=== PATIENT | male | born 1945 | race Caucasian/White ===

== ENCOUNTER → 2018-03-25 11:58 | Outpatient (CLI) | payer MEDICARE, OTHER, SELFPAY ==
--- NOTE | 2018-03-25 12:00 | DI.RAD.S_ITS ---
PROCEDURE: XR THORACIC SPINE 3V INDICATIONS: loss of height TECHNIQUE: 3 views of the thoracic spine were acquired. COMPARISON: None. FINDINGS: Bones: No fractures or dislocations. There is moderate kyphosis. Mild anterior bony lipping T7-T12. No suspicious bony lesions. 12 pairs of ribs are noted, and appear intact where visualized. Soft tissues: No paravertebral stripe thickening. IMPRESSION: Thoracic kyphosis and mild spondylosis. No acute bony abnormality. Dictated by: Chaitanya Romero M.D. on 03/25/2018 at 12:36 Approved by: Chaitanya Romero M.D. on 03/25/2018 at 12:39
--- NOTE | 2018-03-25 12:00 | DI.RAD.S_ITS ---
PROCEDURE: XR LUMBAR SPINE 2-3V INDICATIONS: loss of height TECHNIQUE: 3 views of the lumbar spine were acquired. COMPARISON: [facility] [place], [place], XR LUMBAR SPINE WITH OLBIQUES PLUS FLEXION EXTENSION, 09/20/2017, 13:26. FINDINGS: Bones: 5 [id number] vertebrae are present. There is normal bony alignment. No vertebral body compression fractures. Sclerosis is present over the facet joints L3-4, L4-5 and L5-S1. No suspicious bony lesions. Multilevel anterior bony lipping. Soft tissues: Overlying bowel gas pattern is normal. No suspicious soft tissue calcifications. IMPRESSION: No acute bony abnormality. Mild spondylosis and facet arthropathy. Dictated by: Chaitanya Romero M.D. on 03/25/2018 at 12:39 Approved by: Chaitanya Romero M.D. on 03/25/2018 at 12:43
== END ==
PROVIDERS: PCP Family Medicine; Visit Provider Family Medicine
DX: M40.294 Other kyphosis, thoracic region (principal); M47.814 Spondylosis without myelopathy or radiculopathy, thoracic region
CPT/HCPCS: 72072; 72100

== ENCOUNTER → 2018-03-30 14:19 | Outpatient (CLI) | payer MEDICARE, OTHER, SELFPAY ==
[2018-03-30 16:32] LABS: Hemoglobin A1C% w Est Avg Glu 6.8 % (4.0-6.0)
== END ==
PROVIDERS: Family Provider Orthopaedic Surgery; PCP Family Medicine; Visit Provider Family Medicine
DX: E11.9 Type 2 diabetes mellitus without complications (principal)
CPT/HCPCS: 36415; 83036

== ENCOUNTER → 2018-04-08 08:24 | Outpatient (CLI) | payer MEDICARE, OTHER, SELFPAY ==
[2018-04-08 09:05] LABS: Hematocrit 44.3 % (41-53); Hemoglobin 14.9 g/dL (13.5-17.5); Mean Corpuscular HGB Conc 33.5 % (30-36); Mean Corpuscular Hemoglobin 30.8 PG (26-34); Mean Corpuscular Volume 91.8 fL (80-100); Platelet Count 211 X10^3/uL (150-400); Red Blood Cell Count 4.83 X10^6/uL (4.5-5.9); White Blood Cell Count 7.3 X10^3/uL (4.5-11.0)
[2018-04-08 09:21] LABS: Hemoglobin A1C% w Est Avg Glu 6.9 % (4.0-6.0)
[2018-04-08 09:37] LABS: BUN Creatinine Ratio 23.3 (6-22); Blood Urea Nitrogen 21 mg/dL (9-20); Carbon Dioxide 26 mmol/L (22-32); Chloride 99 mmol/L (98-107); Estimated Glomerular Filt Rate > 60.0 mL/min (>60); Glucose 144 mg/dL (80-110); HEMOLYSIS < 15 (0-50); Potassium 4.3 mmol/L (3.4-5.1); Sodium 139 mmol/L (137-145)
== END ==
PROVIDERS: Family Provider Orthopaedic Surgery; PCP Family Medicine; Visit Provider Orthopaedic Surgery
DX: R73.9 Hyperglycemia, unspecified (principal); Z01.818 Encounter for other preprocedural examination
CPT/HCPCS: 36415; 80048; 83036; 85025; 85027

== ENCOUNTER 2018-04-20 14:31 | Observation (INO) | payer MEDICARE, OTHER, SELFPAY ==
[2018-04-12 15:10] VITALS: BMI 29.8
[2018-04-19] VITALS (14 sets, daily range): BP systolic 102–149; BP diastolic 53–84; PULSE 16–84; RESP 10–18; TEMP 36–37.3; O2SAT 92–96; BMI 29.8
--- NOTE | 2018-04-19 | DI.RAD.S_ITS ---
PROCEDURE: XR LUMBAR SPINE 1V INDICATIONS: LAMINECTOMY TECHNIQUE: Single lateral view of the lumbar spine were acquired. COMPARISON: [facility], [place], XR THORACIC SPINE 3V, 03/25/2018, 11:47. [facility] [place], [place], XR PELVIS WITH LATERAL HIP RIGHT, 12/13/2017, 13:12. [facility], MR, L-SPINE WITHOUT CONTRAST, 09/16/2017, 9:41. [facility], [place], XR LUMBAR SPINE 2-3V, 03/25/2018, 11:47. FINDINGS: Bones: A metallic probe is placed over the posterior elements of L3-4. Soft tissues: Overlying bowel gas pattern is normal. No suspicious soft tissue calcifications. IMPRESSION: Posterior element L3-L4 localization. Dictated by: Giovanny Bear M.D. on 04/19/2018 at 15:34 Approved by: Giovanny Bear M.D. on 04/19/2018 at 15:36
[2018-04-19] MEDS: LACTATED RINGERS 1,000 ML 42 ML IV ×2 (12:51→15:22)
--- NOTE | 2018-04-19 13:21 | PM.PREOP ---
Pre-operative Note Interval Note Pre-op Check: History & Physical Reviewed by Physician and Exam Performed
[2018-04-19] MEDS: CEFAZOLIN 2 GM/100 ML FROZ.PIGGY IV ×2 (14:22→21:37)
--- NOTE | 2018-04-19 14:58 | SUR.OPER ---
Prone on spine table, head in foam head support, padded chest and pelvic supports, gel pad at knees, lower legs supported by pillows; nipples, genitalia and toes free of pressure, arms secured on foam padded arm boards at <90 degrees abduction. Tape over blanket at thigh secured to table.
[2018-04-19] MEDS: THROMBIN (BOVINE) 5,000 UNIT VIAL 5000 UNIT TOP (15:17)
[2018-04-19] MEDS: BUPIVACAINE 0.25% (PF) 8 ML, fentaNYL 100 MCG INJ (15:18)
[2018-04-19] MEDS: SODIUM CHLORIDE 0.9% 1,000 ML, GENTAMICIN 80 MG IRR (15:18)
[2018-04-19] MEDS: VANCOMYCIN 1,000 MG VIAL 1000 MG TOP (15:18)
--- NOTE | 2018-04-19 16:18 | PM.OP.1 ---
Operative Date/Time/Diagnoses - Date of procedure: 04/19/18 Time of procedure: 16:18 Pre-op diagnosis: Lumbar stenosis with radiculopathy Post-op diagnosis: same Procedure & Clinicians Procedure: L3-4 and L4-5 laminectomies Use of microscope Placement of epidural catheter Same procedure as scheduled: Yes Indications: [age] year old male with intractable pain from stenosis. They had failed conservative management and requested operative intervention. Risks and benefits of surgery were discussed and appropriate consents were obtained. Surgeon: Sunny Adair [employer] Systems Repairer Operator: Fiorella Galan Anesthesia Type: General Operative Notes Findings: none Closure Type: primary Specimen(s): none sent Procedure in detail: Patient was brought to the operating room and intubated on the table. They were rolled over on the well-padded prone position on the Elliott table. A time-out was performed. Preoperative antibiotics were given. The back was prepped and draped in standard sterile fashion. Using fluoroscopy for localization, a 6cm incision was made in the midline. We used Bovie to dissect through the lumbodorsal fascia and then subperiosteally dissect the paraspinal muscles off the right side. A marker was placed and x-ray was taken to confirm positioning. We then brought in the microscope. A right-sided laminectomy was performed at L3-4 and L4-5. We carefully depressed the dura and reached across the midline to decompress the opposite side. The neural foramen were cleared out. At the end, we could reach with the ball probe cephalad and caudally across the midline and to the foramen and everything was opened. The wound was irrigated. An epidural catheter was prepared with 8 mL of 0.25% Marcaine and 100 mcg of fentanyl. The dura was carefully depressed and the catheter was advanced 6 cm cephalad underneath remaining lamina without resistance. The fascia was then closed in layers. The epidural catheter was injected without complications. Vancomycin powder was placed in the wound. The superficial and the skin were closed. Sterile dressing was placed. Patient was rolled over extubated brought to recovery room with no complications. Complications: none Condition: stable Disposition: PACU Plan for aftercare: Overnight admission. Up with physical therapy. Plan for discharge tomorrow
[2018-04-19] MEDS: LACTATED RINGERS 1,000 ML 125 ML IV (18:11)
[2018-04-19] MEDS: diphenhydrAMINE 25 MG TABLET PO (18:17)
[2018-04-19] MEDS: ATORVASTATIN 20 MG TABLET 40 MG PO (19:01)
[2018-04-19] MEDS: hydrOXYzine pamoate 25 MG CAPSULE PO (19:03)
[2018-04-19] MEDS: HYDROCODONE/ACET 5/325 TABLET 2 TAB PO (20:07)
[2018-04-19] MEDS: KETOROLAC 30 MG/ML VIAL IV (20:58)
[2018-04-19] MEDS: BRINZOLAMIDE OPHTH 10 ML 1 DROPS EYE-BOTH (20:59)
[2018-04-19] MEDS: DOCUSATE 100 MG CAPSULE PO (20:59)
[2018-04-19] MEDS: LATANOPROST 0.005% OPHTH 2.5 ML 1 DROPS EYE-BOTH (21:00)
[2018-04-19] MEDS: CELECOXIB 200 MG CAPSULE PO (21:00)
[2018-04-19] MEDS: GABAPENTIN 300 MG CAPSULE PO (21:00)
[2018-04-19] MEDS: LISINOPRIL 10 MG TABLET PO (21:01)
[2018-04-19] MEDS: METOPROLOL 12.5 MG TABLET PO (21:01)
[2018-04-19] MEDS: TIMOLOL 0.5% OPHTH 1 DROPS EYE-BOTH (21:02)
[2018-04-19] MEDS: SENNOSIDES 8.6 MG TABLET 17.2 MG PO (21:02)
[2018-04-19] MEDS: HYDROMORPHONE 1 MG INJ 0.2 MG IV (21:35)
[2018-04-20] VITALS (8 sets, daily range): BP systolic 107–140; BP diastolic 59–68; PULSE 59–77; RESP 16–22; TEMP 36.4–37.2; O2SAT 92–97
[2018-04-20] MEDS: hydrOXYzine pamoate 25 MG CAPSULE PO (01:01)
[2018-04-20] MEDS: HYDROCODONE/ACET 5/325 TABLET 2 TAB PO ×4 (01:01→20:24)
--- NOTE | 2018-04-20 04:00 | PC.NURSE ---
Addendum entered by Staci Russell R.N. 04/20/18 06:20: 0300- straight cath performed (in and out) 300 ml drained. pt tolerated ok, complained of pain and pressure and jolted with ouch and ohh exclaimed. Pt sated he felt a bit better afterwords. pt rolled to right side. pillows braced and ice pack applied. will continue to monitor pt for safety. Original Note: Assumed care of pt from outgoing shift at 2300 6-19. Pt awake and alert, complains of pain. feels better with Dilaudid but does wear off. pain medication administered per MAR when pt asked. Pt has not yet voided. jeffrey shift called fro cath order. pt given Popsicle at pt stated his mouth was very dry. pt drinking and tolerating well. pt stated he will try to void. pt able to void 75cc. pt states he wants to hold off for another hour to try to void again in urinal. pt bed moved to help with gravity to hopefully aid in voiding. pt compliant with nursing assessments. bed in lowest,locked position. belongings and call light within reach. will continue to monitor pt for safety. 0400- pt voided only 25ml out. bladder scanned. see documentation.
[2018-04-20] MEDS: CEFAZOLIN 2 GM/100 ML FROZ.PIGGY IV (06:03)
[2018-04-20 06:37] LABS: Hemoglobin 12.4 g/dL (13.5-17.5)
[2018-04-20 06:46] LABS: BUN Creatinine Ratio 15.7 (6-22); Blood Urea Nitrogen 11 mg/dL (9-20); Carbon Dioxide 29 mmol/L (22-32); Chloride 96 mmol/L (98-107); Estimated Glomerular Filt Rate > 60.0 mL/min (>60); Glucose 164 mg/dL (80-110); HEMOLYSIS < 15 (0-50); Potassium 4.1 mmol/L (3.4-5.1); Sodium 133 mmol/L (137-145)
--- NOTE | 2018-04-20 07:42 | P.PN_ITS ---
Subjective Date Patient Seen: 04/20/18 Time Patient Seen: 07:40 Interval history: Rough night. He could not get his pain under control until about 1:00 a.m. and then he has been able to sleep since then. He had to have an in-and out catheterization for urinary retention overnight. He has not urinated since. Exam Vital Signs (past 8 hours): Vital Signs - 8 hr 3 04/20/18 01:00 04/20/18 03:30 Temperature 98.3 F Pulse Rate 72 Respiratory Rate 16 Blood Pressure 108/63 Pulse Oximetry 97 96 Pulse Oximetry 96 Oxygen Delivery Method Nasal Cannula Oxygen Flow Rate 1.5 Const Orientation: alert and oriented x3 Back/Spine/Pelvis Other: Dressing CDI. 5/5 motor both lower extremities Objective Labs Result Diagrams: 04/20/18 06:15 04/20/18 06:15 Labs: Laboratory Results - last 24 hr 04/20/18 04/20/18 06:15 06:15 Hgb 12.4 L Hct 37.0 L Sodium 133 L Potassium 4.1 Chloride 96 L Carbon Dioxide 29 BUN 11 Creatinine 0.70 Estimated GFR > 60.0 BUN/Creatinine Ratio 15.7 Glucose 164 H Calcium 8.0 L Assessment & Plan Post-op Postoperative Procedures Operation Date: 04/19/18 13:45 Actual Procedures Side Surgeon p L3-4, L4-5 Laminectomies Sunny Adair MD Mobilize today with physical therapy. If his pain is under control and he is safe he could go home. He he will need to be able to urinate first. Time Spent With Patient less than 15 minutes Quality VTE Deep Vein Thrombosis/Pulmonary Embolism Present on Admission: No
[2018-04-20] MEDS: DOCUSATE 100 MG CAPSULE PO ×2 (09:17→20:29)
[2018-04-20] MEDS: METFORMIN HCL 500 MG TABLET 1000 MG PO ×2 (09:17→17:11)
[2018-04-20] MEDS: CELECOXIB 200 MG CAPSULE PO (09:17)
[2018-04-20] MEDS: SODIUM CHLORIDE 0.9% FLUSH 10 ML IV ×2 (09:18→20:32)
[2018-04-20] MEDS: TIMOLOL 0.5% OPHTH 1 DROPS EYE-BOTH ×2 (09:19→20:29)
[2018-04-20] MEDS: BRINZOLAMIDE OPHTH 10 ML 1 DROPS EYE-BOTH ×2 (09:19→20:28)
[2018-04-20] MEDS: INSULIN ASPART 100 UNIT/ML INSULN PEN SUBCUT ×2 (09:21→12:25)
--- NOTE | 2018-04-20 11:55 | PT.IIE ---
Current Diagnoses Spinal stenosis, lumbar region with neurogenic claudication (04/19/18) Radiculopathy, lumbar region (04/19/18) Surgery Performed Operation Date: 04/19/18 13:45 Actual Procedures p L3-4, L4-5 Laminectomies - Sunny Adair MD Surgical History (Last Reviewed 03/29/18 @ 17:35 by Devendra Lees MD) History of cataract removal with insertion of prosthetic lens Medical History (Last Updated 04/14/18 @ 09:21 by Sabina Jean RN) Bilateral knee pain (Acute) Bronchiectasis (Acute) Injury of left ulnar nerve (Acute) Sciatic leg pain (Acute) Allergy (Chronic Unknown) Arthritis (Chronic 2004) Asthma (Chronic Unknown) Bronchitis (Chronic Unknown) Chronic back pain (Chronic 2009) Diabetes (Chronic ~2003) Glaucoma (Chronic 2003) Hypertension (Chronic Unknown) Insomnia (Chronic Unknown) Pulsatile tinnitus of both ears (Chronic 2009) Tendonitis (Chronic Unknown) Acne conglobata (Resolved 1954) Anxiety (Resolved 2010) Padilla's palsy (Resolved 2010) Diverticulitis (Resolved 2003) Hepatitis A (Resolved ~1966) Hyponatremia (Resolved Unknown) Skin cancer (Resolved 1981) Physical Therapy Inpatient Evaluation/Re-Eval M1 PT/OT-IP Prior Functional Status Start: 04/20/18 11:45 Freq: NEEDED Status: Active Protocol: Document 04/20/18 11:45 AB (Rec: 04/20/18 11:55 AB [id number]) Medical Review Prior Functional Status Medical History Reviewed Yes Mobility and Gait pt stated that he is modified independent with all mobilities and ambulation using a tripod cane(hurrycane) but unable to ambulate long distance Social History Household Members spouse Living Arrangements House Number of Floors (Floors) Two Floors Number of Stairs To Enter/Railing? has no steps to enter has 13 steps with bilateral rails to get to 2nd floor but stated that he can stay on main level if needed Home Environment Standard Height Toilet Walk in Shower Tub/Shower Home Equipment Four Wheel Walker Employment Status Retired Additional Social History Comment has a tub shower on main level of the house without shower chair but with grab bars has a walk in shower on 2nd floor of the house with built in shower chair, no grab bars and has a handheld shower. pt has a tripod/hurry cane M2 PT-IP Current Condition Start: 04/20/18 11:45 Freq: NEEDED Status: Active Protocol: Document 04/20/18 11:45 AB (Rec: 04/20/18 11:55 AB [id number]) Physical Therapy Current Condition Current Condition Evaluation Date 04/20/18 Treatment Diagnosis s/p L3-4, L4-5 laminectomy Onset Date 04/19/18 Precautions Lumbar Precautions Log Roll No Twisting Limit Bending Lifting Restriction of 10 lbs Gait Belt above Incisional Area M3 PT-IP Subjective Start: 04/20/18 11:45 Freq: NEEDED Status: Active Protocol: Document 04/20/18 11:45 AB (Rec: 04/20/18 11:55 AB [id number]) Subjective Physical Therapy Visit Type Type Initial Evaluation Visit Start Time 09:50 Visit Stop Time 10:34 Total Visit Minutes 44 Number of SOLDERER TORCH Visits 0 Physical Therapy Visit Comments Patient Comments pt agreeable to do therapy Therapy Pain Assessment Pain When Pain Assessed At Rest Pain Present Pain Present Pain Reported Location Back Intensity 5 Scale Used Numeric (1 - 10) Pain Management Techniques Apply Cold Re-positioning Timing of Activity with Medications M4 PT-IP Mobility and Gait Start: 04/20/18 11:45 Freq: NEEDED Status: Active Protocol: Document 04/20/18 11:45 AB (Rec: 04/20/18 11:55 AB [id number]) PT-Bed Mobility Assessment Rolling Type of Rolling Log Rolling Level of Assist Minimal Assistance Supine to Sit Supine to Sit Minimal Assistance PT-Transfer Assessment Sit to and From Stand Sit to and from Stand Minimal Assistance Equipment Transfer Assistive Device Gait Belt Front Wheeled Walker Orthotic/Prosthetic Devices or Brace: No Transfers Transfer Destination Chair Transfer Technique pt ambulated to the chair Transfer Ability Level of Assist Minimal Assistance Gait Assessment Gait Gait Assistance Required: Minimum Assistance Distance (Feet) (feet) 30 Able to Maintain Weight Bearing Status Yes During Gait Assistive Devices Assistive Device Gait Belt Front Wheeled Walker Orthotic/Prosthetic Devices or Brace: No Gait Deviations General Gait Pattern Decreased Stride Length Decreased Feet Clearance Factors Limiting Gait Function Factors Limiting Gait Function Decreased Activity Tolerance Decreased Strength Pain Poor Balance PT-Balance Assessment Sitting Balance and Reactions Static Sitting Balance Ability Good Dynamic Sitting Balance Ability Good Standing Balance and Reactions Static Standing Balance Ability Fair Dynamic Standing Balance Ability Fair Device Used FWW M5 PT-IP Objective Assessments Start: 04/20/18 11:45 Freq: NEEDED Status: Active Protocol: Document 04/20/18 11:45 AB (Rec: 04/20/18 11:55 AB [id number]) Orientation Orientation/Cognition Level of Alertness Alert Orientation Name Age Birthday Month Date Year Day of Week Place Situation Strength Lower Extremity Strength Hip 4-/5 Knee 4-/5 Ankle 4-/5 M6 PT-IP Treatment Start: 04/20/18 11:45 Freq: NEEDED Status: Active Protocol: Document 04/20/18 11:45 AB (Rec: 04/20/18 11:55 AB [id number]) Physical Therapy Treatment Education Education Provided Precautions Weight Bearing Status Post-Op Packet Safety Other Treatments Other Treatment Performed pt ambulated towards the toilet using FWW min A and cues. pt was able to maintain standing using FWW for support SBA. pt ambulated towards the sink using FWW CGA to min A and cues. pt agreed to sit up on chair. M7 PT-IP Assessment and Plan Start: 04/20/18 11:45 Freq: NEEDED Status: Active Protocol: Document 04/20/18 11:45 AB (Rec: 04/20/18 11:55 AB [id number]) PT Summary Assessment and Plan Potential Rehabilitation Potential Fair Status of Condition at Evaluation Evolving Summary Impairments Pain ROM Strength Balance Sensation Cognition Bed Mobility Transfers Gait Activity Tolerance Assessment Summary pt requiring 1 person assist with mobility and plans to have spouse to assist him at home. pt will likely progress during hospital stay. caregiver training and stair training will be completed if appropriate. Goals Bed Mobility Goal Standby Assistance Transfer Goal Standby Assistance Gait Goal Standby Assistance Gait Distance 125 Other Goals up/down 13 steps bilateral rails Days to Meet Goals 3 Frequency of Treatment Frequency Of Treatment Twice a Day Treatment Plan Physical Therapy Treatment Plan Bed Mobility Training Transfer Training Gait Training Therapeutic Exercise Balance Retraining Post Op Education Discharge Planning Hot or Cold Pack Neuromuscular Re-ed Coordination Retraining Manual Therapy Other Recommendations and Next Treatment bed mobility, ambulation, Focus caregiver training Recommendations To Nursing Amount of Assist Needed 1 Person Assist Discharge Recommendations PT Discharge Recommendations Home with Assistance Equipment Needed for Home Before possibly FWW if pt is not safe Discharge with 4WW Provider Visit Care Team Role Provider Type Devendra Lees MD Primary Care Provider Physician Specialty: Family Practice Sunny Adair MD Attending Provider Physician Family Provider Specialty: Orthopedic Surgery
[2018-04-20] MEDS: TAMSULOSIN 0.4 MG CAPSULE PO (13:41)
--- NOTE | 2018-04-20 13:43 | PC.NURSE ---
PT HAS HAD URINARY RETENTION. ONLY VOIDED SMALL AMTS. BLADDER SHOWS 550 ML RETAINED. NOTIFIED TD RAMOS. REC VTO FOR FLOMAX AND JOHN PLACEMENT. AFTER VTO PT VOIDED 200 ML. THIS ELECTRIC STOP INSTALLER NOT PLACING JOHN AT THIS TIME PT IS VOIDING. FLOMAX GIVEN.
--- NOTE | 2018-04-20 15:44 | CM.DANOTE ---
DCP Assessment: Pt is a 72 yo male, resident of [place]. Pt is SDC for a scheduled spinal surgery w/Dr Adair. Pt's PCP is Dr Lees; Insurance is Medicare/[facility] per face sheet. Per chart review, pt is mostly indp and active at his baseline. Pt lives w/spouse and plans to return home w/spouse once medically cleared for DC. PT has assessed pt and expects pt will progress towards home, possibly today, 04-20-18. No barriers expected to safe DC home w/spouse to assist and outpt f/u as ordered. EMILIANA Shabazz
--- NOTE | 2018-04-20 16:14 | OT.IP.EVAL ---
Current Diagnoses Spinal stenosis, lumbar region with neurogenic claudication (04/20/18) Radiculopathy, lumbar region (04/20/18) Surgery Performed Operation Date: 04/19/18 13:45 Actual Procedures p L3-4, L4-5 Laminectomies - Sunny Adair MD Past Medical History (Last Updated 04/14/18 @ 09:21 by Sabina Jean RN) Bilateral knee pain (Acute) Bronchiectasis (Acute) Injury of left ulnar nerve (Acute) Sciatic leg pain (Acute) Allergy (Chronic Unknown) Arthritis (Chronic 2005) Asthma (Chronic Unknown) Bronchitis (Chronic Unknown) Chronic back pain (Chronic 2010) Diabetes (Chronic ~2003) Glaucoma (Chronic 2003) Hypertension (Chronic Unknown) Insomnia (Chronic Unknown) Pulsatile tinnitus of both ears (Chronic 2009) Tendonitis (Chronic Unknown) Acne conglobata (Resolved 1954) Anxiety (Resolved 2010) Padilla's palsy (Resolved 2010) Diverticulitis (Resolved 2003) Hepatitis A (Resolved ~1966) Hyponatremia (Resolved ) Skin cancer (Resolved 1981) Surgical History (Last Reviewed 03/29/18 @ 17:35 by Devendra Lees MD) History of cataract removal with insertion of prosthetic lens Occupational Therapy Inpatient Evaluation/Re-Eval M1 PT/OT-IP Prior Functional Status Start: 04/20/18 11:45 Freq: NEEDED Status: Active Protocol: Document 04/20/18 15:59 PJM (Rec: 04/20/18 16:14 PJM [id number]) Medical Review Prior Functional Status Medical History Reviewed Yes Communication WNL Mobility and Gait pt stated that he is modified independent with all mobilities and ambulation using a tripod cane(hurrycane) but unable to ambulate long distance Activities of Daily Living and IADL's Pt indep with self care. has been assisting with all IADLS at home. Social History Household Members spouse Living Arrangements House Number of Floors (Floors) Two Floors Number of Stairs To Enter/Railing? No stairs to enter home. Full flight of stairs up to walk in shower. Tub shower combo on main level. There are B railings on full flight of stairs. 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 M2 OT-IP Current Condition Start: 04/20/18 15:58 Freq: Status: Active Protocol: Document 04/20/18 15:59 PJM (Rec: 04/20/18 16:14 PJ [id number]) Occupational Therapy Current Condition Current Condition Evaluation Date 04/20/18 Treatment Diagnosis decreased self care and functional mobility s/p L3-4, L4-5 lumbar lami Diagnosis Onset Date 04/19/18 Post Operative Precautions Lumbar Precautions Log Roll No Twisting Limit Bending Lifting Restriction of 10 lbs Gait Belt above Incisional Area M3 OT- IP Subjective and Pain Start: 04/20/18 15:58 Freq: Status: Active Protocol: Document 04/20/18 15:59 PJM (Rec: 04/20/18 16:14 PJ [id number]) OT- Subjective Occupational Therapy Visit Type Type Initial Evaluation Visit Start Time 11:20 Visit Stop Time 11:55 Total Visit Minutes 35 Notes observing today's session . Occupational Therapy Visit Comments Patient Comments I am ready to get back in bed now. Patient/Caregiver Goals to go home, be able to walk in park without pain OT Pain Assessment Pain When Pain Assessed After Treatment Pain Present Pain Present Pain Reported Location Back Intensity 3 Scale Used Numeric (1 - 10) Description Aching Pain Behaviors Guarding Management Techniques Re-positioning Timing of Activity with Medications M4 OT- IP ADL's Start: 04/20/18 15:58 Freq: Status: Active Protocol: Document 04/20/18 15:59 PJM (Rec: 04/20/18 16:14 [facility] [id number]) OT LJB-Ezgn-Wwpolvv General Evaluation Self-Feeding Ability Independent Comments OT Self-Feeding Comments Pt reported vomiting after breakfast OT ADL-Grooming Comments OT Grooming Comments to be assessed OT ADL-Oral Care Comments Oral Care Comments to be assessed OT ADL-Dressing General Eval Upper Body Dressing Ability Standby Assistance Lower Body Dressing Ability Maximum Assistance Comments OT Dressing Comments Began education and demonstration re: use of AED for lower body dressing and optimal clothing choices. to bring in pt's hat steamer and sock aid for pt practice. Pt will wear slip on shoes. OT ADL-Toileting Comments OT Toileting Comments did not occur this session OT ADL-Bathing Comments OT Bathing Comments to be assessed as activity level improves M5 OT- IP IADL's Start: 04/20/18 15:58 Freq: Status: Active Protocol: Document 04/20/18 15:59 PJM (Rec: 04/20/18 16:14 [facility] [id number]) OT-Instrumental Activities of Daily Living Deficits IADL Deficits Identified Deficits Home Safety Awareness Awareness of Need for Assistance at Home Good Awareness Ability to Problem Solve Emergency Able to Problem Solve Situations Medication Management Medication Management No Deficits Identified Money Management Money Management No Deficits Identified Meal Preparation Meal Preparation Caregiver Provides Assist Printed Circuit Boards Laminator Printed Circuit Boards Laminator Caregiver Provides Assist Driving Driving Caregiver Provides Assist M6 OT- IP Functional Cognition Start: 04/20/18 15:58 Freq: Status: Active Protocol: Document 04/20/18 15:59 PJM (Rec: 04/20/18 16:14 [facility] [id number]) Cognitive Factors Limiting Selfcare Function Cognitive Ability Level of Alertness Alert Patient Orientation Name Age Birthday Month Date Year Day of Week Place Situation Attention Span Ability Capable of Focused Attention Capable of Sustained Attention Ability to Follow Commands Able to Follow Multi-Step Commands Memory Description No Deficits Noted Safety Awareness No Deficits Noted Problem Solving Ability No deficits Noted Executive Function Ability No Deficits Noted Abstract Thinking Ability No Deficits Noted OT- Vision and Hearing OT- Hearing Assessment OT- Hearing Assessment WFL OT- Vision Assessment Visual Acuity WFL Glasses All The Time M7 OT- IP Mobility and Balance Start: 04/20/18 15:58 Freq: Status: Active Protocol: Document 04/20/18 15:59 PJM (Rec: 04/20/18 16:14 [facility] [id number]) OT- Bed Mobility Assessment Sit to Supine Sit to Supine Assist Minimal Assistance Scooting Scooting to Edge of Bed Standby Assistance OT-Transfer Assessment Sit to and From Stand Sit to and from Stand Contact Guard Assistance Transfers Transfer Ability Contact Guard Assistance Technique Transfer Destination Bed Transfer Technique Stand Step Pivot Comments Mobility Comments Min cues for technique and precautions. Provided education re: sitting posture, optimal chair selection at home. OT- Balance Assessment Sitting Balance and Reactions Static Sitting Balance Ability Good Standing Balance and Reactions Static Standing Balance Ability Good M8 OT- IP Objective Assessments Start: 04/20/18 15:58 Freq: Status: Active Protocol: Document 04/20/18 15:59 PJM (Rec: 04/20/18 16:14 [facility] [id number]) OT Gross Range of Motion Upper Extremity Range of Motion Assessment Within Functional Limits OT Strength Upper Extremity Strength Assessment Within Functional Limits OT- Coordination Assessment Comments Coordination Comments BUE WFL OT-Muscle Tone Assessment Muscle Tone WNL Yes OT Sensation Assessment Comments Summary Comments Pt denies deficits in BUE'S. Edema Edema Absent M9 OT- IP Assessment and Plan Start: 04/20/18 15:58 Freq: Status: Active Protocol: Document 04/20/18 15:59 PJM (Rec: 04/20/18 16:14 PJM [id number]) OT Summary Assessment and Plan Potential Rehabilitation Potential Excellent Analytic Complexity at Evaluation Low Summary OT Impairments Pain Balance Functional Mobility Dressing Toileting Bathing Toilet Transfers Shower Transfers Assessment Summary Low complexity OT assessment completed with emphasis on self care skills within lumbar spine precautions. Pt has performance deficits in functional mobility/transfers, lower body dressing, bathing and toileting. Pt will benefit from 1 additional OT visit to address goals below. Anticipate pt will d/c home with 24 hr assist from supportive . Goals Grooming Goal Independent Dressing Goal Independent School Counsellor Sock Aid Toileting Goal Independent Bathing Goal Standby Assistance Toilet Transfer Goal Independent Shower Transfer Goal Standby Assistance Patient/Caregiver Education Goal Demonstrate Post-Op Precautions Caregiver Independent Assisting Patient Days to Meet Goals 2 Frequency of Treatment Frequency Of Treatment Once a Day Treatment Plan OT Treatment Plan ADL Training Functional Mobility Patient/Family Education Discharge Planning Discharge Recommendations OT Discharge Recommendations Home with 24/05 Assist Home Equipment Needs ? raised toilet seat and toilet paper aid pending pt progress here
--- NOTE | 2018-04-20 17:10 | PT.IPTN ---
Current Diagnoses Spinal stenosis, lumbar region with neurogenic claudication (04/20/18) Radiculopathy, lumbar region (04/20/18) Surgery Performed Operation Date: 04/19/18 13:45 Actual Procedures p L3-4, L4-5 Laminectomies - Sunny Adair MD Physical Therapy Treatment Note M2 PT-IP Current Condition Start: 04/20/18 11:45 Freq: NEEDED Status: Active Protocol: Document 04/20/18 17:05 AB (Rec: 04/20/18 17:10 AB [id number]) Physical Therapy Current Condition Current Condition Evaluation Date 04/20/18 Treatment Diagnosis s/p L3-4, L4-5 laminectomy Onset Date 04/19/18 Precautions Lumbar Precautions Log Roll No Twisting Limit Bending Lifting Restriction of 10 lbs Gait Belt above Incisional Area M3 PT-IP Subjective Start: 04/20/18 11:45 Freq: NEEDED Status: Active Protocol: Document 04/20/18 17:05 AB (Rec: 04/20/18 17:10 AB [id number]) Subjective Physical Therapy Visit Type Type Treatment Note Visit Start Time 14:00 Visit Stop Time 14:30 Total Visit Minutes 30 Number of CLOCKMAKER APPRENTICE Visits 0 Physical Therapy Visit Comments Patient Comments i am having bladder problems Therapy Pain Assessment Pain When Pain Assessed At Rest Pain Present Pain Present Pain Reported Location Back Intensity 3 Scale Used Numeric (1 - 10) Pain Management Techniques Apply Cold Re-positioning M4 PT-IP Mobility and Gait Start: 04/20/18 11:45 Freq: NEEDED Status: Active Protocol: Document 04/20/18 17:05 AB (Rec: 04/20/18 17:10 AB [id number]) PT-Bed Mobility Assessment Rolling Type of Rolling Log Rolling Level of Assist Standby Assistance Supine to Sit Supine to Sit Standby Assistance Bedrails Sit to Supine Sit to Supine Standby Assistance PT-Transfer Assessment Sit to and From Stand Sit to and from Stand Contact Guard Assistance Equipment Transfer Assistive Device Gait Belt 4 Wheeled Walker Transfers Transfer Destination Toilet Transfer Technique pt ambulated to the toilet Transfer Ability Level of Assist Contact Guard Assistance Gait Assessment Gait Gait Assistance Required: Contact Guard Assist Distance (Feet) (feet) 75 Assistive Devices Assistive Device Gait Belt 4 Wheeled Walker Gait Deviations General Gait Pattern Decreased Stride Length Decreased Feet Clearance Factors Limiting Gait Function Factors Limiting Gait Function Decreased Activity Tolerance Decreased Strength Pain Poor Balance Poor Safety Awareness Stair Climbing Assessment Evaluation Level of Assist On Stairs Contact Guard Assistance Devices Stair Climbing Assistive Devices Left Railing Right Railing Technique/Endurance Stair Climbing Direction Ascend and Descend Stair Climbing Technique Step to Step Number of Steps Climbed 3 Query Text: Stair Climbing Set # Repetitions (reps) 2 M5 PT-IP Objective Assessments Start: 04/20/18 11:45 Freq: NEEDED Status: Active Protocol: Document 04/20/18 11:45 AB (Rec: 04/20/18 11:55 AB [id number]) Orientation Orientation/Cognition Level of Alertness Alert Orientation Name Age Birthday Month Date Year Day of Week Place Situation Strength Lower Extremity Strength Hip 4-/5 Knee 4-/5 Ankle 4-/5 M6 PT-IP Treatment Start: 04/20/18 11:45 Freq: NEEDED Status: Active Protocol: Document 04/20/18 11:45 AB (Rec: 04/20/18 11:55 AB [id number]) Physical Therapy Treatment Education Education Provided Precautions Weight Bearing Status Post-Op Packet Safety Other Treatments Other Treatment Performed pt ambulated towards the toilet using FWW min A and cues. pt was able to maintain standing using FWW for support SBA. pt ambulated towards the sink using FWW CGA to min A and cues. pt agreed to sit up on chair. M7 PT-IP Assessment and Plan Start: 04/20/18 11:45 Freq: NEEDED Status: Active Protocol: Document 04/20/18 17:05 AB (Rec: 04/20/18 17:10 AB [id number]) PT Summary Assessment and Plan Potential Rehabilitation Potential Good Summary Impairments Pain ROM Strength Balance Bed Mobility Transfers Gait Activity Tolerance Progress Towards Goals Progressing Toward Goals Assessment Summary pt requiring CGA with mobility . pt plans to go home with spouse to assist him. Goals Bed Mobility Goal Standby Assistance Transfer Goal Standby Assistance Gait Goal Standby Assistance Gait Distance 125 Other Goals up/down 13 steps bilateral rails Days to Meet Goals 3 Frequency of Treatment Frequency Of Treatment Twice a Day Treatment Plan Physical Therapy Treatment Plan Bed Mobility Training Transfer Training Gait Training Therapeutic Exercise Balance Retraining Post Op Education Discharge Planning Hot or Cold Pack Neuromuscular Re-ed Coordination Retraining Manual Therapy Other Recommendations and Next Treatment bed mobility, ambulation, Focus caregiver training Recommendations To Nursing Amount of Assist Needed 1 Person Assist Discharge Recommendations PT Discharge Recommendations Home with Assistance
[2018-04-20] MEDS: ATORVASTATIN 20 MG TABLET 40 MG PO (17:11)
[2018-04-20] MEDS: MAG HYDROX/ALUM/SIMETH 30 ML UDC PO (20:24)
[2018-04-20] MEDS: LATANOPROST 0.005% OPHTH 2.5 ML 1 DROPS EYE-BOTH (20:28)
[2018-04-20] MEDS: GABAPENTIN 300 MG CAPSULE PO (20:29)
[2018-04-20] MEDS: LISINOPRIL 10 MG TABLET PO (20:31)
[2018-04-20] MEDS: METOPROLOL 12.5 MG TABLET PO (20:31)
[2018-04-20] MEDS: SENNOSIDES 8.6 MG TABLET 17.2 MG PO (20:31)
--- NOTE | 2018-04-20 21:06 | PC.NURSE ---
Evening Shift Note Pt complaint of feeling flushed, sweaty and chills. VSS, 96% on RA, temp 99.0. Pt also w/ increased urinary output, 2025cc in 6hrs. Further complaint of burning at urethra and L upper back quadrant pain. ase master mechanic MD paged, orders received for UA. Will update physician once results are received.
[2018-04-20 21:39] LABS: Bacteria Urine None Seen; RBC Urine None Seen (0-5/HPF); WBC Urine None Seen (0-5/HPF)
[2018-04-20 21:40] LABS: Appearance Urine UA CLEAR; Bilirubin Urine UA NEGATIVE (NEGATIVE); Color Urine UA YELLOW; Glucose Urine UA NEGATIVE (Normal); Ketones Urine UA NEGATIVE (NEGATIVE); Leukocyte Esterase Urine UA NEGATIVE (NEGATIVE); Nitrite Urine UA Negative (Negative); Occult Blood Urine UA NEGATIVE (Negative); Protein Urine UA NEGATIVE (Negative); Specific Gravity Urine UA <=1.005 (1.000-1.035); Urobilinogen Urine UA 0.2 E.U./dL (0.2); pH Urine UA 6.5 (4.5-8.0)
[2018-04-20 21:53] LABS: Culture Indicated Urine Cult Not Indicated
[2018-04-21 00:20] VITALS: BP 105/50; PULSE 78; RESP 16; TEMP 36.5; O2SAT 92
[2018-04-21] MEDS: HYDROCODONE/ACET 5/325 TABLET 2 TAB PO ×2 (00:52→04:52)
[2018-04-21 04:55] VITALS: BP 147/77; PULSE 81; RESP 16; TEMP 36.7; O2SAT 93
[2018-04-21 07:50] VITALS: O2SAT 99
[2018-04-21 08:00] VITALS: BP 141/71; PULSE 92; RESP 16; TEMP 36.7; O2SAT 95
--- NOTE | 2018-04-21 08:00 | P.PN_ITS ---
Subjective Date Patient Seen: 04/21/18 Time Patient Seen: 07:58 Interval history: He is doing much better today with pain control and mobility. He was able to urinate yesterday afternoon and has been successful since. Exam Vital Signs (past 8 hours): Vital Signs - 8 hr 3 04/21/18 00:20 04/21/18 04:55 Temperature 97.7 F 98.1 F Pulse Rate 78 81 Respiratory Rate 16 16 Blood Pressure 105/50 L 147/77 H Pulse Oximetry 92 93 Pulse Oximetry 93 Fraction of Inspired Oxygen 21 Oxygen Delivery Method Room Air Oxygen Flow Rate 0 Back/Spine/Pelvis Other: Dressing CDI. 5/5 motor both lower extremities Objective Labs Result Diagrams: 04/20/18 06:15 04/20/18 06:15 Labs: Laboratory Results - last 24 hr 04/20/18 20:57 Urine Color Yellow Urine Appearance Clear Urine pH 6.5 Ur Specific [place] <=1.005 Urine Protein Negative Urine Glucose (UA) Negative Urine Ketones Negative Urine Occult Blood Negative Urine Nitrate Negative Urine Bilirubin Negative Urine Urobilinogen 0.2 Ur Leukocyte Esterase Negative Urine RBC None seen Urine WBC None seen Urine Bacteria None seen Ur Culture Indicated? Cult not indicated Micro UA Comment Not Reportable Assessment & Plan Post-op Postoperative Procedures Operation Date: 04/19/18 13:45 Actual Procedures Side Surgeon p L3-4, L4-5 Laminectomies Snuny Adair MD we had kept him in the hospital for urinary retention as well as pain control. He is doing much better today. We will get him up with physical therapy 1 more time this morning and then discharged home. Time Spent With Patient less than 15 minutes Quality VTE Deep Vein Thrombosis/Pulmonary Embolism Present on Admission: No
--- NOTE | 2018-04-21 08:09 | PM.DS.1 ---
History of Present Illness Date Patient Seen: 04/21/18 Time Patient Seen: 08:10 Chief complaint: *OPB*L34 and L45 laminectomies [id number] Narrative: Patient is an 72-year-old male with history of intractable back pain from stenosis. He failed conservative management and elected to proceed with surgical intervention by Dr. Adair. Discharge Providers Date of admission: 04/20/18 14:31 Primary care physician: Devendra Lees MD Consults: 04/19/18 17:52 Consult to Occupational Therapy Evaluate & Treat Comment: Physician Instructions: Evaluate and treat Consult to Physical Therapy Evaluate & Treat Comment: Physician Instructions: Evaluate and Treat Consult to Respiratory Therapy Evaluate & Treat Comment: Physician Instructions: Evaluate and treat Discharge provider: Elenita Dorado PA-C Summary Discharge Diagnosis: 1. Lumbar stenosis with radiculopathy Hospital Course: Patient was admitted into taken to the operating room where he had a L3-4, and L4-[address] Adair. He recovered well and was transferred to the floor for further care. Postop day 1 and he had issues with pain control at night and also with urinary retention which needed in and out catheterization. Postop day 2 pain was under control and he was mobilizing well. He was also able to urinate. He will be discharge to home later this morning after physical therapy. Status at Discharge Cognitive/behavioral status at discharge: Alert orient x3 Functional status at discharge: uses cane/walker Overall status at discharge: patient is not back to baseline Time Spent with Patient Less than 30 minutes Exam Vital Signs (past 8 hours): Vital Signs - 8 hr 04/21/18 00:20 04/21/18 04:55 Temperature 97.7 F 98.1 F Pulse Rate 78 81 Respiratory Rate 16 16 Blood Pressure 105/50 L 147/77 H Pulse Oximetry 92 93 Pulse Oximetry 93 Fraction of Inspired Oxygen 21 Oxygen Delivery Method Room Air Oxygen Flow Rate 0 Narrative Exam Narrative: Orthopedic vital signs stable. Patient alert and orient x3. Back dressings clean, dry and intact. 5/5 bilateral lower extremity. Objective Labs Result Diagrams: 04/20/18 06:15 04/20/18 06:15 Labs: Laboratory Results - last 24 hr 04/20/18 20:57 Urine Color Yellow Urine Appearance Clear Urine pH 6.5 Ur Specific [place] <=1.005 Urine Protein Negative Urine Glucose (UA) Negative Urine Ketones Negative Urine Occult Blood Negative Urine Nitrate Negative Urine Bilirubin Negative Urine Urobilinogen 0.2 Ur Leukocyte Esterase Negative Urine RBC None seen Urine WBC None seen Urine Bacteria None seen Ur Culture Indicated? Cult not indicated Micro UA Comment Not Reportable Discharge Plan Discharge Plan Patient Disposition: Home, Self-Care Discharge comment: f/u 1.5 wks Discharge Med Rec/Prescriptions Prescriptions: New celecoxib [Celebrex] 200 mg Capsule 200 mg PO BID PRN (Reason: pain) Qty: 60 RF: 0 hydrocodone-acetaminophen 5-325 mg Tablet See Label Instructions .ROUTE .COMPLEX PRN (Reason: Pain, Severe) Qty: 30 RF: 0 hydroxyzine pamoate 25 mg Capsule 25 mg PO Q4HR PRN (Reason: spasms) Qty: 20 RF: 0 Continue glipizide 2.5 mg Tablet Extended Release 24hr 1.25 mg PO DAILY RF: 0 sildenafil (antihypertensive) 20 MG tablet 20 mg PO Q DAY PRN Qty: 10 RF: 5 metformin [Glucophage] 500 MG tablet 1,000 mg PO BIDCC Qty: 360 RF: 3 lisinopril 10 MG tablet 10 mg PO BID Qty: 180 RF: 3 metoprolol tartrate 25 MG tablet 12.5 mg PO BID Qty: 90 RF: [address] See Label Instructions .ROUTE .COMPLEX Qty: 1 RF: 0 latanoprost 0.005 % Drops 1 drp EYE-BOTH BEDTIME RF: 0 brinzolamide [Azopt] 1 % Drops,Suspension 1 drp EYE-BOTH BID RF: 0 timolol maleate 0.5 % Drops 1 drp EYE-BOTH BID RF: 0 atorvastatin 80 MG tablet 40 mg PO QPM RF: 0 temazepam 15 mg capsule 15 mg PO HSP PRN (Reason: insomnia) RF: 0 fluticasone furoate [Arnuity Ellipta] 100 mcg/actuation blister with device 100 mcg IH QAM RF: 0 Provider Discharge Instructions Diet: Diet as Tolerated Activity: limited BLT 10 lbs max Wound Care Report to your healthcare provider any signs of infection, such as:: chills, fever, night sweats, increased pain and unusual drainage Dressing: may change dressing and shower POD #5 Visit Report/Discharge Packet Stand Alone Forms: Surgery Discharge Discharge Data Primary Care Provider: Devendra Lees Attending Provider: Sunny Adair Admit Date/Time: 04/20/18 14:31 Quality VTE Deep Vein Thrombosis/Pulmonary Embolism Present on Admission: No
--- NOTE | 2018-04-21 08:16 | P.DS_ITS ---
History of Present Illness Date Patient Seen: 04/21/18 Time Patient Seen: 08:10 Chief complaint: *OPB*L34 and L45 laminectomies [id number] Narrative: Patient is an 72-year-old male with history of intractable back pain from stenosis. He failed conservative management and elected to proceed with surgical intervention by Dr. Adair. Discharge Providers Date of admission: 04/20/18 14:31 Primary care physician: Devendra Lees MD Consults: 04/19/18 17:52 Consult to Occupational Therapy Evaluate & Treat Comment: Physician Instructions: Evaluate and treat Consult to Physical Therapy Evaluate & Treat Comment: Physician Instructions: Evaluate and Treat Consult to Respiratory Therapy Evaluate & Treat Comment: Physician Instructions: Evaluate and treat Discharge provider: Elenita Dorado PA-C Summary Discharge Diagnosis: 1. Lumbar stenosis with radiculopathy Hospital Course: Patient was admitted into taken to the operating room where he had a L3-4, and L4-[address] Adair. He recovered well and was transferred to the floor for further care. Postop day 1 and he had issues with pain control at night and also with urinary retention which needed in and out catheterization. Postop day 2 pain was under control and he was mobilizing well. He was also able to urinate. He will be discharge to home later this morning after physical therapy. Status at Discharge Cognitive/behavioral status at discharge: Alert orient x3 Functional status at discharge: uses cane/walker Overall status at discharge: patient is not back to baseline Time Spent with Patient Less than 30 minutes Exam Vital Signs (past 8 hours): Vital Signs - 8 hr 3 04/21/18 00:20 04/21/18 04:55 Temperature 97.7 F 98.1 F Pulse Rate 78 81 Respiratory Rate 16 16 Blood Pressure 105/50 L 147/77 H Pulse Oximetry 92 93 Pulse Oximetry 93 Fraction of Inspired Oxygen 21 Oxygen Delivery Method Room Air Oxygen Flow Rate 0 Narrative Exam Narrative: Orthopedic vital signs stable. Patient alert and orient x3. Back dressings clean, dry and intact. 5/5 bilateral lower extremity. Objective Labs Result Diagrams: 04/20/18 06:15 04/20/18 06:15 Labs: Laboratory Results - last 24 hr 04/20/18 20:57 Urine Color Yellow Urine Appearance Clear Urine pH 6.5 Ur Specific Huntly <=1.005 Urine Protein Negative Urine Glucose (UA) Negative Urine Ketones Negative Urine Occult Blood Negative Urine Nitrate Negative Urine Bilirubin Negative Urine Urobilinogen 0.2 Ur Leukocyte Esterase Negative Urine RBC None seen Urine WBC None seen Urine Bacteria None seen Ur Culture Indicated? Cult not indicated Micro UA Comment Not Reportable Discharge Plan Discharge Plan Patient Disposition: Home, Self-Care Discharge comment: f/u 1.5 wks Discharge Med Rec/Prescriptions Prescriptions: New celecoxib [Celebrex] 200 mg Capsule 200 mg PO BID PRN (Reason: pain) Qty: 60 RF: 0 hydrocodone-acetaminophen 5-325 mg Tablet See Label Instructions .ROUTE .COMPLEX PRN (Reason: Pain, Severe) Qty: 30 RF : 0 hydroxyzine pamoate 25 mg Capsule 25 mg PO Q4HR PRN (Reason: spasms) Qty: 20 RF: 0 Continue glipizide 2.5 mg Tablet Extended Release 24hr 1.25 mg PO DAILY RF: 0 sildenafil (antihypertensive) 20 MG tablet 20 mg PO Q DAY PRN Qty: 10 RF: 5 metformin [Glucophage] 500 MG tablet 1,000 mg PO BIDCC Qty: 360 RF: 3 lisinopril 10 MG tablet 10 mg PO BID Qty: 180 RF: 3 metoprolol tartrate 25 MG tablet 12.5 mg PO BID Qty: 90 RF: [address] See Label Instructions .ROUTE .COMPLEX Qty: 1 RF: 0 latanoprost 0.005 % Drops 1 drp EYE-BOTH BEDTIME RF: 0 brinzolamide [Azopt] 1 % Drops,Suspension 1 drp EYE-BOTH BID RF: 0 timolol maleate 0.5 % Drops 1 drp EYE-BOTH BID RF: 0 atorvastatin 80 MG tablet 40 mg PO QPM RF: 0 temazepam 15 mg capsule 15 mg PO HSP PRN (Reason: insomnia) RF: 0 fluticasone furoate [Arnuity Ellipta] 100 mcg/actuation blister with device 100 mcg IH QAM RF: 0 Provider Discharge Instructions Diet: Diet as Tolerated Activity: limited BLT 10 lbs max Wound Care Report to your healthcare provider any signs of infection, such as:: chills, fever, night sweats, increased pain and unusual drainage Dressing: may change dressing and shower POD #5 Visit Report/Discharge Packet Stand Alone Forms: Surgery Discharge Discharge Data Primary Care Provider: Devendra Lees Attending Provider: Sunny Adair Admit Date/Time: 04/20/18 14:31 Quality VTE Deep Vein Thrombosis/Pulmonary Embolism Present on Admission: No
[2018-04-21] MEDS: HYDROCODONE/ACET 5/325 TABLET 1 TAB PO (09:03)
[2018-04-21] MEDS: METFORMIN HCL 500 MG TABLET 1000 MG PO (09:03)
[2018-04-21] MEDS: DOCUSATE 100 MG CAPSULE PO (09:05)
[2018-04-21] MEDS: BRINZOLAMIDE OPHTH 10 ML 1 DROPS EYE-BOTH (09:05)
[2018-04-21] MEDS: CELECOXIB 200 MG CAPSULE PO (09:05)
[2018-04-21] MEDS: METOPROLOL 12.5 MG TABLET PO (09:07)
[2018-04-21] MEDS: LISINOPRIL 10 MG TABLET PO (09:07)
[2018-04-21] MEDS: TIMOLOL 0.5% OPHTH 1 DROPS EYE-BOTH (09:08)
[2018-04-21] MEDS: SODIUM CHLORIDE 0.9% FLUSH 10 ML IV (09:08)
--- NOTE | 2018-04-21 10:05 | PT.IPTN ---
Current Diagnoses Spinal stenosis, lumbar region with neurogenic claudication (04/20/18) Radiculopathy, lumbar region (04/20/18) Surgery Performed Operation Date: 04/19/18 13:45 Actual Procedures p L3-4, L4-5 Laminectomies - Sunny Adair MD Physical Therapy Treatment Note M2 PT-IP Current Condition Start: 04/20/18 11:45 Freq: NEEDED Status: Active Protocol: Document 04/20/18 17:05 AB (Rec: 04/20/18 17:10 AB [id number]) Physical Therapy Current Condition Current Condition Evaluation Date 04/20/18 Treatment Diagnosis s/p L3-4, L4-5 laminectomy Onset Date 04/19/18 Precautions Lumbar Precautions Log Roll No Twisting Limit Bending Lifting Restriction of 10 lbs Gait Belt above Incisional Area M3 PT-IP Subjective Start: 04/20/18 11:45 Freq: NEEDED Status: Active Protocol: Document 04/21/18 10:05 GGD (Rec: 04/21/18 10:39 GGD [id number]) Subjective Physical Therapy Visit Type Type Treatment Note Visit Start Time 09:40 Visit Stop Time 10:05 Total Visit Minutes 25 Number of INTERNET MARKETING DIRECTOR Visits 1 Physical Therapy Visit Comments Patient Comments Pt states he doing better. Therapy Pain Assessment Pain When Pain Assessed At Rest Pain Present Pain Present Pain Reported Location Back Intensity 2 Scale Used Numeric (1 - 10) Pain Management Techniques Timing of Activity with Medications M4 PT-IP Mobility and Gait Start: 04/20/18 11:45 Freq: NEEDED Status: Active Protocol: Document 04/21/18 10:05 GGD (Rec: 04/21/18 10:39 GGD [id number]) PT-Bed Mobility Assessment Rolling Type of Rolling Log Rolling Level of Assist Standby Assistance Supine to Sit Supine to Sit Standby Assistance Bedrails Sit to Supine Sit to Supine Standby Assistance PT-Transfer Assessment Sit to and From Stand Sit to and from Stand Standby Assistance Equipment Transfer Assistive Device Gait Belt 4 Wheeled Walker Transfers Transfer Destination Bed Transfer Technique ambulate Gait Assessment Gait Gait Assistance Required: Contact Guard Assist Distance (Feet) (feet) 250 Assistive Devices Assistive Device Gait Belt 4 Wheeled Walker Factors Limiting Gait Function Factors Limiting Gait Function Decreased Strength Pain Stair Climbing Assessment Evaluation Level of Assist On Stairs Contact Guard Assistance Devices Stair Climbing Assistive Devices Left Railing Right Railing Technique/Endurance Stair Climbing Direction Ascend and Descend Stair Climbing Technique Step to Step Number of Steps Climbed 3 Query Text: Stair Climbing Set # Repetitions (reps) 2 M6 PT-IP Treatment Start: 04/20/18 11:45 Freq: NEEDED Status: Active Protocol: Document 04/21/18 10:05 GGD (Rec: 04/21/18 10:39 GGD [id number]) Physical Therapy Treatment Education Education Provided Precautions M7 PT-IP Assessment and Plan Start: 04/20/18 11:45 Freq: NEEDED Status: Active Protocol: Document 04/21/18 10:05 GGD (Rec: 04/21/18 10:39 GGD [id number]) PT Summary Assessment and Plan Summary Assessment Summary Pt progressing with mobility. No LOB or unsteadiness with gait or stairs. Frequency of Treatment Frequency Of Treatment Twice a Day Treatment Plan Other Recommendations and Next Treatment bed mobility, ambulation, Focus caregiver training Recommendations To Nursing Amount of Assist Needed 1 Person Assist Discharge Recommendations PT Discharge Recommendations Home with Assistance
--- NOTE | 2018-04-21 10:15 | CM.DPNOTE ---
DC Note: DC order in place and PT has cleared pt for return home w/spouse. Met w/pt this morning, explained SW role. Pt admits he is nervous about going home because his is 4-5 years older than him and they take care of each other as needed. Pt states he has the first floor of his house prepared, has DME and spouse will transport home. Pt will work w/PT one more time before DC home. No barriers expected to safe DC home w/spouse and outpt f/u as ordered. EMILIANA Shabazz
--- NOTE | 2018-04-21 11:55 | OT.IP.TRT ---
Current Diagnoses Spinal stenosis, lumbar region with neurogenic claudication (04/20/18) Radiculopathy, lumbar region (04/20/18) Surgery Performed Operation Date: 04/19/18 13:45 Actual Procedures p L3-4, L4-5 Laminectomies - Sunny Adair MD Occupational Therapy Treatment Note M2 OT-IP Current Condition Start: 04/20/18 15:58 Freq: Status: Active Protocol: Document 04/20/18 15:59 PJM (Rec: 04/20/18 16:14 PJM [id number]) Occupational Therapy Current Condition Current Condition Evaluation Date 04/20/18 Treatment Diagnosis decreased self care and functional mobility s/p L3-4, L4-5 lumbar lami Diagnosis Onset Date 04/19/18 Post Operative Precautions Lumbar Precautions Log Roll No Twisting Limit Bending Lifting Restriction of 10 lbs Gait Belt above Incisional Area M3 OT- IP Subjective and Pain Start: 04/20/18 15:58 Freq: Status: Active Protocol: Document 04/21/18 11:48 PJM (Rec: 04/21/18 11:55 PJM [id number]) OT- Subjective Occupational Therapy Visit Type Type Treatment Note Visit Start Time 11:15 Visit Stop Time 11:39 Total Visit Minutes 24 Notes Pt awake and alert in bed with present. Occupational Therapy Visit Comments Patient Comments I am ready to go home today. OT Pain Assessment Pain When Pain Assessed After Treatment Pain Present Pain Present Pain Reported Location Back Intensity 3 Scale Used Numeric (1 - 10) Description Aching M4 OT- IP ADL's Start: 04/20/18 15:58 Freq: Status: Active Protocol: Document 04/21/18 11:48 PJM (Rec: 04/21/18 11:55 PJM [id number]) OT ADL-Grooming General Evaluation Grooming Ability Independent Comments OT Grooming Comments Provided education re: body mechanics standing at sink. OT ADL-Oral Care General Eval Oral Care Ability Independent OT ADL-Dressing General Eval Upper Body Dressing Ability Independent Lower Body Dressing Ability Independent Assistive Devices Dressing Assistive Devices Hydrometer Calibrator Sock Aid Comments OT Dressing Comments Provided education re: body mechanics and use of emergency services director and sock aid with pt modified indep with AED. OT ADL-Toileting General Evaluation Toileting Ability Independent Comments OT Toileting Comments Provided education re: body mechanics during rafael care. Pt declines need for toilet paper aid. OT ADL-Bathing Bathing Type Bathing Type Sponge Bath Comments OT Bathing Comments provides SBA PRN until pt able to shower. M5 OT- IP IADL's Start: 04/20/18 15:58 Freq: Status: Active Protocol: Document 04/20/18 15:59 PJM (Rec: 04/20/18 16:14 PJ [id number]) OT-Instrumental Activities of Daily Living Deficits IADL Deficits Identified Deficits Home Safety Awareness Awareness of Need for Assistance at Home Good Awareness Ability to Problem Solve Emergency Able to Problem Solve Situations Medication Management Medication Management No Deficits Identified Money Management Money Management No Deficits Identified Meal Preparation Meal Preparation Caregiver Provides Assist Senior Relationship Manager Senior Relationship Manager Caregiver Provides Assist Driving Driving Caregiver Provides Assist M6 OT- IP Functional Cognition Start: 04/20/18 15:58 Freq: Status: Active Protocol: Document 04/20/18 15:59 PJM (Rec: 04/20/18 16:14 PJ [id number]) Cognitive Factors Limiting Selfcare Function Cognitive Ability Level of Alertness Alert Patient Orientation Name Age Birthday Month Date Year Day of Week Place Situation Attention Span Ability Capable of Focused Attention Capable of Sustained Attention Ability to Follow Commands Able to Follow Multi-Step Commands Memory Description No Deficits Noted Safety Awareness No Deficits Noted Problem Solving Ability No deficits Noted Executive Function Ability No Deficits Noted Abstract Thinking Ability No Deficits Noted OT- Vision and Hearing OT- Hearing Assessment OT- Hearing Assessment WFL OT- Vision Assessment Visual Acuity WFL Glasses All The Time M7 OT- IP Mobility and Balance Start: 04/20/18 15:58 Freq: Status: Active Protocol: Document 04/21/18 11:48 PJM (Rec: 04/21/18 11:55 PJ [id number]) OT- Bed Mobility Assessment Rolling Type of Rolling Log Rolling Level of Assistance Independent Supine to Sit Supine to Sit Assist Independent OT-Transfer Assessment Sit to and From Stand Sit to and from Stand Independent Transfers Transfer Ability Independent Technique Transfer Destination Car Chair Devices Transfer Assistive Devices 4 Wheeled Walker Comments Mobility Comments Provided education re: car transfer technique with emphasis on precautions. Provided further education re: sitting posture at pt/'s request. Provided education about [employer] as resource for RTS if one needed at home . OT- Balance Assessment Sitting Balance and Reactions Static Sitting Balance Ability Normal Dynamic Sitting Balance Ability Good Standing Balance and Reactions Static Standing Balance Ability Good Dynamic Standing Balance Ability Good M8 OT- IP Objective Assessments Start: 04/20/18 15:58 Freq: Status: Active Protocol: Document 04/20/18 15:59 PJM (Rec: 04/20/18 16:14 PJM [id number]) OT Gross Range of Motion Upper Extremity Range of Motion Assessment Within Functional Limits OT Strength Upper Extremity Strength Assessment Within Functional Limits OT- Coordination Assessment Comments Coordination Comments BUE WFL OT-Muscle Tone Assessment Muscle Tone WNL Yes OT Sensation Assessment Comments Summary Comments Pt denies deficits in BUE'S. Edema Edema Absent M9 OT- IP Assessment and Plan Start: 04/20/18 15:58 Freq: Status: Active Protocol: Document 04/21/18 11:48 PJM (Rec: 04/21/18 11:55 PJM [id number]) OT Summary Assessment and Plan Potential Rehabilitation Potential Excellent Summary OT Impairments Pain Progress Towards Goals Goals Met Assessment Summary All OT education completed with pt/ today. No further OT services needed. He will d /c home today with 24 hr assist from [employer] . Discharge Recommendations OT Discharge Recommendations Home with Assistance Home Equipment Needs will obtain RTS if needed . Pt does not need toilet paper aid.
--- NOTE | 2018-04-21 13:41 | PC.NURSE ---
THIS CLOUD SUBJECT MATTER EXPERT CHANGED DRSG PRIOR TO D/C TO COVERSITE PER PT REQUEST
== END 2018-04-21 12:45 | disposition home or self-care (01) ==
LOC: OR 14:45
PROVIDERS: Orthopaedic Surgery; Admitting Provider Orthopaedic Surgery; Family Provider Orthopaedic Surgery; PCP Family Medicine; Visit Provider Orthopaedic Surgery
PROC: (CPT 63047; principal; 2018-04-19 13:45)
DX: M48.062 Spinal stenosis, lumbar region with neurogenic claudication (principal); M54.16 Radiculopathy, lumbar region; I10 Essential (primary) hypertension; E11.9 Type 2 diabetes mellitus without complications; Z79.84 Long term (current) use of oral hypoglycemic drugs
CPT/HCPCS: 63047; 63048; 36415; 72020; 76000; 80048; 81001; 82962; 85014; 85018; 94760; 97116; 97162; 97165; 97530; 97535; G0378; J0330; J0690; J1170; J1885; J2250; J2405; J2704; J3010

== ENCOUNTER → 2018-07-18 12:35 | Outpatient (CLI) | payer MEDICARE, OTHER, SELFPAY ==
[2018-04-19 17:52] VITALS: BMI 29.8
[2018-07-18 13:33] LABS: Blood Urea Nitrogen 21 mg/dL (9-20); Estimated Glomerular Filt Rate > 60.0 mL/min (>60)
== END ==
PROVIDERS: Family Provider Orthopaedic Surgery; PCP Family Medicine; Visit Provider Orthopaedic Surgery
DX: Z01.818 Encounter for other preprocedural examination (principal)
CPT/HCPCS: 36415; 82565; 84520

== ENCOUNTER → 2018-09-13 12:15 | Outpatient (CLI) | payer MEDICARE, OTHER, SELFPAY ==
[2018-08-12 11:56] VITALS: BMI 29.8
[2018-09-13 12:49] LABS: Hematocrit 43.4 % (41-53); Hemoglobin 14.4 g/dL (13.5-17.5); Mean Corpuscular HGB Conc 33.2 % (30-36); Mean Corpuscular Hemoglobin 30.5 PG (26-34); Mean Corpuscular Volume 91.8 fL (80-100); Platelet Count 194 X10^3/uL (150-400); Red Blood Cell Count 4.73 X10^6/uL (4.5-5.9); Red Cell Distribution Width 13.9 % (11.6-14.8); White Blood Cell Count 6.4 X10^3/uL (4.5-11.0)
[2018-09-13 13:30] LABS: Cholesterol 110 mg/dL (140-199); HDL Cholesterol 45 mg/dL (40-60); LDL Cholesterol Calculated 48 mg/dL (<100); Triglycerides 84 mg/dL (35-150)
[2018-09-13 14:02] LABS: TSH w/ Reflex to FT4 1.79 uIU/mL (0.47-4.68)
[2018-09-13 14:56] LABS: Creatinine Urine Random 112.1 mg/dL
[2018-09-13 14:59] LABS: Hemoglobin A1C% w Est Avg Glu 7.3 % (4.0-6.0)
[2018-09-13 15:00] LABS: Microalbumi Creatinin Ratio Ur 5.3 ug/mg CR (<30); Microalbumin Urine Random 0.6 mg/dL (0-1.6)
[2018-09-13 15:18] LABS: Vitamin D 25 Hydroxy (D3) 36.5 ng/mL (30.0-100.0)
== END ==
PROVIDERS: Family Provider Orthopaedic Surgery; PCP Student in an Organized Health Care Education/Training Program; Visit Provider Student in an Organized Health Care Education/Training Program
DX: E55.9 Vitamin D deficiency, unspecified (principal); E11.9 Type 2 diabetes mellitus without complications; Z92.3 Personal history of irradiation; D64.9 Anemia, unspecified
CPT/HCPCS: 36415; 80061; 82043; 82306; 82570; 83036; 84443; 85027

== ENCOUNTER → 2019-03-07 10:52 | Outpatient (CLI) | payer MEDICARE, OTHER, SELFPAY ==
[2019-03-06 10:39] VITALS: BMI 29.8
--- NOTE | 2019-03-07 10:54 | DI.RAD.S_ITS ---
PROCEDURE: XR CHEST 2V INDICATIONS: Productive cough TECHNIQUE: 2 views of the chest were acquired. COMPARISON: None. FINDINGS: Surgical changes and devices: None. Lungs and pleura: Lungs are clear. No pleural effusions or pneumothorax. There is mild hyperaeration with flattening of the hemidiaphragms. Findings are suggestive of chronic obstructive pulmonary physiology. Mediastinum: Mediastinal contours are normal. Heart size is normal. Bones and chest wall: No suspicious bony abnormalities. Soft tissues appear unremarkable. IMPRESSION: No acute disease. No focal consolidation. Dictated by: Kevin Mills M.D. on 03/07/2019 at 13:57 Approved by: Kevin Mills M.D. on 03/07/2019 at 13:58
== END ==
PROVIDERS: Family Provider Orthopaedic Surgery; PCP Student in an Organized Health Care Education/Training Program; Visit Provider Registered Nurse
DX: R05 Cough (principal)
CPT/HCPCS: 71046

== ENCOUNTER → 2019-09-12 16:48 | Outpatient (CLI) | payer MEDICARE, OTHER, SELFPAY ==
[2019-03-06 10:39] VITALS: BMI 29.8
--- NOTE | 2019-09-12 16:54 | DI.MRI.S_ITS ---
PROCEDURE: MR KNEE RT WO CON INDICATIONS: UNILATERAL PRIMARY OSTEARTHRITIS RIGHT KNEE TECHNIQUE: Noncontrast sagittal PD fast spin echo and T2 fast spin echo with fat saturation, sagittal 3-D FLASH with fat saturation; coronal T1 spin echo and PD fast spin echo with fat saturation, and axial PD fast spin echo with fat saturation through the knee. COMPARISON: None. FINDINGS: Image quality: Excellent. Menisci: There is peripheral displacement of medial meniscus bowing medial collateral ligament. Complex tear involving body and posterior horn of medial meniscus is seen extending to both superior and inferior articulating surfaces. There is also suggestion of oblique tear involving anterior horn of lateral meniscus extending to superior articulating surface. The meniscal root ligaments appear intact. Cruciate ligaments: Markedly thickened anterior cruciate ligament with extensive intrasubstance fluid signal is seen suggestive of sprain/moderate grade intrasubstance partial-thickness tear involving anterior cruciate ligament near its proximal insertion. No full-thickness ACL rupture. Posterior cruciate ligament is intact. Medial structures: Low to moderate grade sprain/partial thickness tear involving proximal to mid medial collateral ligament is seen.. The posterior oblique ligament, semimembranosus tendon insertions, oblique popliteal ligament, and meniscocapsular junction appear intact. Visualized portions of the pes anserinus tendons appear normal. No abnormal bursal fluid. Lateral structures: The lateral collateral ligament, long and short heads of the biceps femoris tendon appear intact. The popliteus tendon appears normal; the popliteofibular ligament appears intact. The posterosuperior and anteroinferior popliteomeniscal fascicles appear intact. The arcuate and fabellofibular ligaments appear intact, on either side of the lateral inferior geniculate artery. Iliotibial band appears normal. Anterior structures: The quadriceps and patellar tendons appear intact. Patellar alignment is normal. No femoral trochlear dysplasia or ventral trochlear prominence. No edema in the infrapatellar fat pad. Bones and cartilage: There is [id number] medial femorotibial compartment osteoarthritis and chondromalacia. Low-grade chondromalacia and osteoarthritic changes also noted in lateral femoral tibial compartment and patellofemoral compartment. Joint space: There is small to moderate amount of joint fluid. No Lawrence's cyst. Normal appearing synovial plicae are incidentally noted. IMPRESSION: 1. Complex tear involving body and posterior horn of medial meniscus extending to both superior and inferior articulating surfaces. Oblique tear involving anterior horn of lateral meniscus extending to superior articulating surface. 2. Finding is suggestive of sprain/moderate grade intrasubstance partial-thickness tear involving proximal to mid anterior cruciate ligament. No full-thickness ACL rupture. 3. Low to moderate grade sprain/partial thickness tear involving proximal to mid medial collateral ligament. 4. 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 Mild lateral femoral tibial compartment and patellofemoral compartment osteoarthritis and low-grade chondromalacia. Dictated by: Ron Coles M.D. on 09/13/2019 at 11:06 Approved by: Ron Coles M.D. on 09/13/2019 at 11:11
== END ==
PROVIDERS: Family Provider Orthopaedic Surgery; PCP Student in an Organized Health Care Education/Training Program; Visit Provider Orthopaedic Surgery
DX: M17.11 Unilateral primary osteoarthritis, right knee (principal); S83.231A Complex tear of medial meniscus, current injury, right knee, initial encounter; S83.281A Other tear of lateral meniscus, current injury, right knee, initial encounter; S83.411A Sprain of medial collateral ligament of right knee, initial encounter; M22.41 Chondromalacia patellae, right knee
CPT/HCPCS: 73721

== ENCOUNTER → 2019-12-04 14:09 | Outpatient (CLI) | payer MEDICARE, OTHER, SELFPAY ==
[2019-03-06 10:39] VITALS: BMI 29.8
[2019-12-04 15:00] LABS: Hemoglobin A1C% w Est Avg Glu 6.3 % (4.0-6.0)
[2019-12-04 15:42] LABS: Alanine Aminotransferase 23 IU/L (<50); Albumin 4.3 g/dL (3.5-5.0); Albumin Globulin Ratio 1.5 (1.0-2.8); Alkaline Phosphatase 63 U/L (38-126); Aspartate Aminotransferase 28 IU/L (17-59); Bilirubin Total 0.4 mg/dL (0.2-1.3); Blood Urea Nitrogen 22 mg/dL (9-20); Calcium 9.3 mg/dL (8.4-10.2); Carbon Dioxide 29 mmol/L (22-32); Chloride 101 mmol/L (98-107); Estimated Glomerular Filt Rate > 60.0 mL/min (>60); Globulin 2.8 g/dL (1.7-4.1); Glucose 104 mg/dL (80-110); HEMOLYSIS 16 (0-50); Potassium 4.5 mmol/L (3.4-5.1); Sodium 138 mmol/L (137-145); Total Protein 7.1 g/dL (6.3-8.2)
[2019-12-04 15:46] LABS: Microalbumin Urine Random 0.9 mg/dL (0-1.6)
[2019-12-04 15:47] LABS: Creatinine Urine Random 197.8 mg/dL; Microalbumi Creatinin Ratio Ur 4.5 ug/mg CR (<30)
== END ==
PROVIDERS: Family Provider Orthopaedic Surgery; PCP Student in an Organized Health Care Education/Training Program; Referring Provider Student in an Organized Health Care Education/Training Program; Visit Provider Student in an Organized Health Care Education/Training Program
DX: E11.9 Type 2 diabetes mellitus without complications (principal); I10 Essential (primary) hypertension; Z92.3 Personal history of irradiation; Z79.899 Other long term (current) drug therapy
CPT/HCPCS: 36415; 80053; 82043; 82570; 83036

== ENCOUNTER → 2020-06-04 14:04 | Outpatient (CLI) | payer MEDICARE, OTHER, SELFPAY ==
[2019-03-06 10:39] VITALS: BMI 29.8
[2020-06-04 15:08] LABS: Hemoglobin A1C% w Est Avg Glu 6.7 % (4.0-6.0)
[2020-06-04 15:43] LABS: BUN Creatinine Ratio 18.1 (6-22); Blood Urea Nitrogen 17 mg/dL (9-20); Calcium 9.3 mg/dL (8.4-10.2); Carbon Dioxide 25 mmol/L (22-32); Chloride 103 mmol/L (98-107); Estimated Glomerular Filt Rate > 60.0 mL/min (>60); Glucose 141 mg/dL (80-110); HEMOLYSIS < 15 (0-50); Potassium 4.6 mmol/L (3.4-5.1); Sodium 137 mmol/L (137-145)
== END ==
PROVIDERS: Family Provider Orthopaedic Surgery; PCP Student in an Organized Health Care Education/Training Program; Referring Provider Student in an Organized Health Care Education/Training Program; Visit Provider Student in an Organized Health Care Education/Training Program
DX: E11.9 Type 2 diabetes mellitus without complications (principal); Z79.1 Long term (current) use of non-steroidal anti-inflammatories (NSAID)
CPT/HCPCS: 36415; 80048; 83036

== ENCOUNTER → 2020-12-30 13:53 | Outpatient (CLI) | payer MEDICARE, OTHER, SELFPAY ==
[2019-03-06 10:39] VITALS: BMI 29.8
[2020-12-30 15:25] LABS: BUN Creatinine Ratio 19.8 (6-22); Blood Urea Nitrogen 21 mg/dL (9-20); Calcium 9.2 mg/dL (8.4-10.2); Carbon Dioxide 26 mmol/L (22-32); Chloride 103 mmol/L (98-107); Estimated Glomerular Filt Rate > 60.0 mL/min (>60); Glucose 99 mg/dL (80-110); HEMOLYSIS < 15 (0-50); Potassium 4.7 mmol/L (3.4-5.1); Sodium 137 mmol/L (137-145)
== END ==
PROVIDERS: Family Provider Orthopaedic Surgery; PCP Student in an Organized Health Care Education/Training Program; Referring Provider Student in an Organized Health Care Education/Training Program; Visit Provider Student in an Organized Health Care Education/Training Program
DX: E11.9 Type 2 diabetes mellitus without complications (principal); I10 Essential (primary) hypertension
CPT/HCPCS: 36415; 80048; 83036

== ENCOUNTER → 2021-07-11 12:16 | Outpatient (CLI) | payer MEDICARE, OTHER, SELFPAY ==
[2019-03-06 10:39] VITALS: BMI 29.8
[2021-07-11 14:22] LABS: Hemoglobin A1C% w Est Avg Glu 6.7 % (4.0-6.0)
== END ==
PROVIDERS: Family Provider Orthopaedic Surgery; PCP Student in an Organized Health Care Education/Training Program; Referring Provider Student in an Organized Health Care Education/Training Program; Visit Provider Student in an Organized Health Care Education/Training Program
DX: I10 Essential (primary) hypertension (principal); E11.9 Type 2 diabetes mellitus without complications
CPT/HCPCS: 36415; 83036

== ENCOUNTER → 2021-09-29 08:01 | Outpatient (CLI) | payer MEDICARE, OTHER, SELFPAY ==
[2019-03-06 10:39] VITALS: BMI 29.8
[2021-09-29 11:50] LABS: COVID19 -Nasal RAPID Negative (Negative)
== END ==
PROVIDERS: Family Provider Orthopaedic Surgery; PCP Student in an Organized Health Care Education/Training Program; Visit Provider Physician Assistant
DX: Z20.822 Contact with and (suspected) exposure to COVID-19 (principal)
CPT/HCPCS: 87635; C9803

== ENCOUNTER 2021-09-30 06:40 | Day surgery (SDC) | payer MEDICARE, OTHER, SELFPAY ==
[2019-03-06 10:39] VITALS: BMI 29.8
[2021-09-30] MEDS: PROPARACAINE 0.5% OPHTH SOL 2 DROPS EYE-OP (07:00)
[2021-09-30] MEDS: CATARACT EYE COMPOUND (10 DROPS/SYRINGE) 3 DROPS EYE-OP (07:01)
[2021-09-30 07:06] VITALS: BP 177/92; PULSE 73; RESP 20; TEMP 36.6; O2SAT 98; BMI 30.5
--- NOTE | 2021-09-30 07:33 | P.OP_ITS ---
Operative Date/Time/Diagnoses Pre-op diagnosis: Nuclear Cataract Left eye Post-op diagnosis: same Procedure & Clinicians Surgeon: Aakash Mancilla Anesthesia Type: MAC +/- and Sedation Operative Notes Procedure in detail: Patient brought to the operating suite. Tetracaine drops placed in the left eye. Marking instrument was used to camryn vertical and horizontal meridians. Patient was prepped and draped in sterile manner. Wire lid speculum was placed in the eye. Marking instrument was used to camryn 80 degree meridian. Betadine drops were placed on the eye. This was irrigated. Lidocaine jelly was placed on the eye. A paracentesis port was created with a side-port blade. 0.1 mL 1% preservative free lidocaine was injected into the anterior chamber. The anterior chamber was deepened with viscoelastic. 2.6 mm keratome was used to create a temporal clear corneal incision. Cystotome and Utrata forceps were used to create continuous tear capsulorrhexis. Balanced salt solution was used to hydro dissect the nucleus. The phacoemulsification handpiece was inserted and the nucleus was removed using the stop and chop technique. The irrigation aspiration handpiece was inserted and the remaining cortex was removed. Anterior chamber was deepened with viscoelastic. An Hawthorne [id number] intraocular lens with a power of 8.5 was injected into the capsular bag. Irrigation aspiration handpiece was inserted and the remaining viscoelastic was removed. The lens was rotated to the 80 degree meridian. Incision was hydrated with balanced salt solution and found to be leak free with pressure with Weck-Alice sponges. 0.1 mL Vigamox injected anterior chamber. 0.3 mL Kenalog 10 mg was injected subconjunctivally. Lid speculum was removed. The patient left the operating room in excellent condition. Complications: none Post-operative Condition: stable Disposition: same day surgery
--- NOTE | 2021-09-30 07:33 | PM.PREOP ---
Pre-operative Note Interval Note History & Physical reviewed/Exam performed by Physician: Yes Changes to H&P: No
--- NOTE | 2021-09-30 07:35 | P.OP_ITS ---
Operative Date/Time/Diagnoses Pre-op diagnosis: Nuclear cataract right eye Procedure & Clinicians Procedure: Cataract Surgery Same procedure as scheduled: Yes Surgeon: Aakash Mancilla Anesthesia Type: MAC +/- and Sedation Operative Notes Procedure in detail: Patient brought to the operating suite. Tetracaine drops placed in the right eye. The marking instrument was used to camryn the vertical and horizontal meridians. Patient was prepped and draped in sterile manner. Wire lid speculum was placed in the eye. The marking instrument was used to the 80 degree meridian. Betadine drops were placed on the eye. This was irrigated. Lidocaine jelly was placed on the eye. A paracentesis port was created with a side-port blade. 0.1 mL 1% preservative free lidocaine was injected into the anterior chamber. The anterior chamber was deepened with viscoelastic. 2.6 mm keratome was used to create a temporal clear corneal incision. Cystotome and Utrata forceps were used to create continuous tear capsulorrhexis. Balanced salt solution was used to hydro dissect the nucleus. The phacoemulsification handpiece was inserted and the nucleus was removed using the stop and chop technique. The irrigation aspiration handpiece was inserted and the remaining cortex was removed. Anterior chamber was deepened with viscoelastic. An Hawthorne [id number] intraocular lens with a power of 8.5 was injected into the capsular bag. Irrigation aspiration handpiece was inserted and the remaining viscoelastic was removed. The lens was rotated to the 80 degree meridian. Incision was hydrated with balanced salt solution and found to be leak free with pressure with Weck- Alice sponges. 0.1 mL Vigamox injected anterior chamber. 0.3 mL Kenalog 10 mg was injected subconjunctivally. Lid speculum was removed. The patient left the operating room in excellent condition. Complications: none Post-operative Condition: stable Disposition: same day surgery
[2021-09-30] MEDS: HYALURONATE SODIUM 30 MG-10 MG/ML SYRINGES 1 BOX INTRAOCULA (07:58)
[2021-09-30] MEDS: MOXIFLOXACIN INJ 4 MG/0.8 ML VIAL 0.5 MG EYE-OP (07:59)
[2021-09-30] MEDS: BALANCED SALT IRRIG SOLN NO.2 500 ML, EPINEPHrine 1 MG IRR (07:59)
[2021-09-30] MEDS: TRIAMCINOLONE 50 MG/5 ML VIAL INJ (07:59)
[2021-09-30] MEDS: PHENYLEPHRINE/LIDOCAINE VIAL (OR) 0.2 ML EYE-OP (07:59)
[2021-09-30] MEDS: TETRACAINE 0.5% OPHTH DROPS 4 ML 2 DROPS EYE-OP (08:00)
[2021-09-30] MEDS: LIDOCAINE 2% (GLYDO) 6 ML GEL TOP (08:00)
[2021-09-30] MEDS: ONDANSETRON 4 MG/2 ML INJ IV (08:15)
[2021-09-30 08:18] VITALS: BP 176/86; PULSE 63; RESP 20; TEMP 36.6; O2SAT 93
--- NOTE | 2021-09-30 08:22 | SUR.PREOP ---
Patient to phase 2 from OR s/p right cataract surgery; VSS; denies any pain but c/o slight nausea; patient is diaphoretic. 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 Patient denies SOB; orange juice at bedside and tolerating well. Will reassess vital signs and patient condition prior to discharging.
[2021-09-30 08:46] VITALS: BP 121/81; PULSE 58; TEMP 36.4; O2SAT 95
--- NOTE | 2021-09-30 08:47 | SUR.PHASEII ---
Patient states that he is feeling better; vss; no diaphoresis noted. Patient denies pain or nausea.
[2021-09-30 09:08] VITALS: BP 124/75; PULSE 59; RESP 16; O2SAT 92
--- NOTE | 2021-09-30 09:09 | SUR.PHASEII ---
Recheck of vss; patient states that he feels much better. Tolerating PO fluids; called who is on the way from home; no distress noted; GCS 15; no pain, no SOB, no nausea.
== END 2021-09-30 09:10 | disposition home or self-care (01) ==
PROVIDERS: Family Provider Orthopaedic Surgery; PCP Student in an Organized Health Care Education/Training Program; Referring Provider Ophthalmology; Visit Provider Ophthalmology
PROC: (CPT 66984; principal; 2021-09-30 07:45)
DX: H25.11 Age-related nuclear cataract, right eye (principal); E11.9 Type 2 diabetes mellitus without complications; Z79.84 Long term (current) use of oral hypoglycemic drugs; J45.909 Unspecified asthma, uncomplicated; I10 Essential (primary) hypertension; E78.00 Pure hypercholesterolemia, unspecified
CPT/HCPCS: 66984; 82962; J0171; J2250; J2405; J3010; J3301; V2787

== ENCOUNTER → 2022-01-19 12:56 | Outpatient (CLI) | payer MEDICARE, OTHER, SELFPAY ==
[2019-03-06 10:39] VITALS: BMI 29.8
[2022-01-19 15:07] LABS: Hemoglobin A1C% w Est Avg Glu 7.4 % (4.0-6.0)
[2022-01-19 15:17] LABS: Blood Urea Nitrogen 22 mg/dL (9-20); Calcium 9.2 mg/dL (8.4-10.2); Carbon Dioxide 25 mmol/L (22-32); Chloride 103 mmol/L (98-107); Estimated Glomerular Filt Rate > 60.0 mL/min (>60); Glucose 109 mg/dL (80-110); HEMOLYSIS < 15 (0-50); Potassium 4.5 mmol/L (3.4-5.1); Sodium 137 mmol/L (137-145)
[2022-01-19 15:27] LABS: Microalbumi Creatinin Ratio Ur 6.8 ug/mg CR (<30); Microalbumin Urine Random 0.9 mg/dL (0-1.6)
== END ==
PROVIDERS: Family Provider Orthopaedic Surgery; PCP Student in an Organized Health Care Education/Training Program; Referring Provider Student in an Organized Health Care Education/Training Program; Visit Provider Student in an Organized Health Care Education/Training Program
DX: E11.9 Type 2 diabetes mellitus without complications (principal); I10 Essential (primary) hypertension
CPT/HCPCS: 36415; 80048; 82043; 82570; 83036

== ENCOUNTER → 2022-07-09 12:45 | Outpatient (CLI) | payer MEDICARE, OTHER, SELFPAY ==
[2019-03-06 10:39] VITALS: BMI 29.8
[2022-07-09 14:34] LABS: Hemoglobin A1C% w Est Avg Glu 7.6 % (4.0-6.0)
== END ==
PROVIDERS: Family Provider Orthopaedic Surgery; PCP Student in an Organized Health Care Education/Training Program; Referring Provider Student in an Organized Health Care Education/Training Program; Visit Provider Student in an Organized Health Care Education/Training Program
DX: E11.9 Type 2 diabetes mellitus without complications (principal)
CPT/HCPCS: 36415; 83036

== ENCOUNTER → 2023-03-17 12:10 | Outpatient (CLI) | payer MEDICARE, OTHER, SELFPAY ==
[2019-03-06 10:39] VITALS: BMI 29.8
--- NOTE | 2023-03-17 12:11 | DI.RAD.S_ITS ---
PROCEDURE: XR CHEST 2V INDICATIONS: Cough TECHNIQUE: 2 views of the chest were acquired. COMPARISON: [facility], CR, XR CHEST 2V, 03/07/2019, 10:55. FINDINGS: Surgical changes and devices: None. Lungs and pleura: No focal pulmonary opacity. Mildly prominent lung volumes could indicate COPD. No pleural effusions or pneumothorax. Mediastinum: Tortuosity of the thoracic aorta is noted. Cardiac silhouette is within normal limits in size. Bones and chest wall: No suspicious bony abnormalities. Soft tissues appear unremarkable. IMPRESSION: No acute cardiopulmonary abnormality. Approved by: Phani Tubbs M.D. on 03/17/2023 at 15:34
== END ==
PROVIDERS: Family Provider Orthopaedic Surgery; PCP Student in an Organized Health Care Education/Training Program; Referring Provider Nurse Practitioner Family; Visit Provider Nurse Practitioner Family
DX: R05.9 Cough, unspecified (principal)
CPT/HCPCS: 71046

== ENCOUNTER → 2023-04-29 08:42 | Outpatient (CLI) | payer MEDICARE, OTHER, SELFPAY ==
[2019-03-06 10:39] VITALS: BMI 29.8
[2023-04-29 09:44] LABS: Microalbumin Urine Random < 0.6 mg/dL (0-1.6)
[2023-04-29 10:13] LABS: Alanine Aminotransferase 27 IU/L (<50); Albumin Globulin Ratio 1.5 (1.0-2.8); Alkaline Phosphatase 71 U/L (38-126); Aspartate Aminotransferase 23 IU/L (17-59); BUN Creatinine Ratio 19.8 (6-22); Bilirubin Total 0.6 mg/dL (0.2-1.3); Blood Urea Nitrogen 20 mg/dL (9-20); Calcium 8.5 mg/dL (8.4-10.2); Carbon Dioxide 27 mmol/L (22-32); Chloride 103 mmol/L (98-107); Cholesterol 126 mg/dL (140-199); Estimated Glomerular Filt Rate > 60 mL/min (>60); Globulin 2.6 g/dL (1.7-4.1); Glucose 187 mg/dL (80-110); HDL Cholesterol 45 mg/dL (40-60); HEMOLYSIS < 15 (0-50); LDL Cholesterol Calculated 64 mg/dL (<100); Potassium 4.3 mmol/L (3.4-5.1); Sodium 136 mmol/L (137-145); Total Protein 6.6 g/dL (6.3-8.2); Triglycerides 83 mg/dL (35-150)
[2023-04-30 07:19] LABS: Labcorp Hemoglobin (Hb) A1c 6.9 % (4.8-5.6)
== END ==
PROVIDERS: Student in an Organized Health Care Education/Training Program; Family Provider Orthopaedic Surgery; PCP Pediatrics; Referring Provider Pediatrics; Visit Provider Pediatrics
DX: I10 Essential (primary) hypertension; E55.9 Vitamin D deficiency, unspecified; E11.9 Type 2 diabetes mellitus without complications; E78.2 Mixed hyperlipidemia
CPT/HCPCS: 36415; 80053; 80061; 82043; 82306; 82570; 83036

== ENCOUNTER → 2023-07-09 13:14 | Outpatient (CLI) | payer MEDICARE, OTHER, SELFPAY ==
[2019-03-06 10:39] VITALS: BMI 29.8
[2023-07-09 15:37] LABS: TSH w/ Reflex to FT4 1.79 uIU/mL (0.47-4.68)
[2023-07-16 12:16] LABS: Percent Free Testosterone 1.81 % (1.50-4.20); Testosterone Free 6.41 ng/dL (5.00-21.00); Testosterone Total 354.2 ng/dL (264.0-916.0)
== END ==
PROVIDERS: Family Provider Orthopaedic Surgery; PCP Pediatrics; Referring Provider Pediatrics; Visit Provider Pediatrics
DX: E11.9 Type 2 diabetes mellitus without complications (principal); E78.2 Mixed hyperlipidemia; L57.0 Actinic keratosis; R53.83 Other fatigue
CPT/HCPCS: 36415; 84402; 84403; 84443

== ENCOUNTER → 2023-12-29 08:04 | Outpatient (CLI) | payer MEDICARE, OTHER, SELFPAY ==
[2019-03-06 10:39] VITALS: BMI 29.8
[2023-12-29 09:07] LABS: Add Manual Diff / Slide Review NO; Basophils Absolute Auto 100 /uL (0-100); Eosinophils Absolute Auto 300 /uL (0-450); Eosinophils Percent Auto 4.4 % (2-4); Hematocrit 43.3 % (41-53); Hemoglobin 14.6 g/dL (13.5-17.5); Lymphocytes Absolute Auto 1500 /uL (1100-4500); Lymphocytes Percent Auto 24.3 % (25-40); Mean Corpuscular HGB Conc 33.8 % (30-36); Mean Corpuscular Hemoglobin 30.7 PG (26-34); Monocytes Absolute Auto 500 /uL (0-900); Monocytes Percent Auto 7.9 % (3-14); Neutrophils Absolute Auto 3800 /uL (1500-7000); Neutrophils Percent Auto 62.4 % (50-75); Platelet Count 181 X10^3/uL (150-400); Red Blood Cell Count 4.76 X10^6/uL (4.5-5.9); Red Cell Distribution Width 14.6 % (11.6-14.8); White Blood Cell Count 6.1 X10^3/uL (4.5-11.0)
[2023-12-29 09:34] LABS: Alanine Aminotransferase 26 IU/L (<50); Albumin 3.7 g/dL (3.5-5.0); Albumin Globulin Ratio 1.5 (1.0-2.8); Alkaline Phosphatase 63 U/L (38-126); Aspartate Aminotransferase 29 IU/L (17-59); BUN Creatinine Ratio 19.6 (6-22); Bilirubin Total 0.7 mg/dL (0.2-1.3); Blood Urea Nitrogen 20 mg/dL (9-20); Calcium 9.3 mg/dL (8.4-10.2); Carbon Dioxide 24 mmol/L (22-32); Chloride 104 mmol/L (98-107); Estimated Glomerular Filt Rate > 60 mL/min (>60); Globulin 2.4 g/dL (1.7-4.1); Glucose 125 mg/dL (80-110); HEMOLYSIS < 15 (0-50); Potassium 4.6 mmol/L (3.4-5.1); Sodium 138 mmol/L (137-145); Total Protein 6.1 g/dL (6.3-8.2)
[2023-12-29 11:38] LABS: Hemoglobin A1C% w Est Avg Glu 6.4 % (4.0-6.0)
[2024-01-06 09:31] LABS: Percent Free Testosterone 3.35 % (1.50-4.20); Testosterone Free 19.97 ng/dL (5.00-21.00); Testosterone Total 596.1 ng/dL (264.0-916.0)
== END ==
PROVIDERS: Family Provider Orthopaedic Surgery; PCP Family Medicine; Referring Provider Family Medicine; Visit Provider Family Medicine
DX: E11.9 Type 2 diabetes mellitus without complications (principal); R53.83 Other fatigue; I10 Essential (primary) hypertension; R79.89 Other specified abnormal findings of blood chemistry; N52.9 Male erectile dysfunction, unspecified
CPT/HCPCS: 36415; 80053; 83036; 84402; 84403; 85025

== ENCOUNTER 2024-12-20 21:16 | Observation (INO) | payer MEDICARE, OTHER, SELFPAY ==
[2019-03-06 10:39] VITALS: BMI 29.8
[2024-12-20] VITALS (8 sets, daily range): BP systolic 137–196; BP diastolic 63–89; PULSE 89–104; RESP 12–19; TEMP 37.2; O2SAT 91–93; BMI 29.7
--- NOTE | 2024-12-20 21:16 | DI.RAD.S_ITS ---
PROCEDURE: XR CHEST 1V INDICATIONS: Possible stroke TECHNIQUE: One view of the chest was acquired. COMPARISON: [facility], CR, XR CHEST 2V, 03/17/2023, 12:09. [facility], CR, XR CHEST 2V, 03/07/2019, 10:55. FINDINGS: Surgical changes and devices: None. Lungs and pleura: Lungs are clear. No pleural effusions or pneumothorax. Mediastinum: Tortuous contour of the thoracic aorta. Mediastinal contours appear normal. Heart size is normal. Bones and chest wall: No suspicious bony lesions. Overlying soft tissues appear unremarkable. IMPRESSION: No acute cardiothoracic process. Dictated by: Jared Bajwa M.D. on 12/20/2024 at 21:55 Approved by: Jared Bajwa M.D. on 12/20/2024 at 21:56
--- NOTE | 2024-12-20 21:16 | DI.CT.S_ITS ---
PROCEDURE: CT STROKE INDICATIONS: Positive BE-FAST, Stroke symptoms TECHNIQUE: Noncontrast 4.5 mm thick angled axial sections acquired from the foramen magnum to the vertex, with coronal reformats. For radiation dose reduction, the following was used: automated exposure control, adjustment of mA and/or kV according to patient size. COMPARISON: [facility], CT, CT ANGIO HEAD AND NECK, 12/20/2024, 21:20. FINDINGS: Image quality: Diagnostic. CSF spaces: Basal cisterns are patent. No extra-axial fluid collections. The ventricles are symmetric in size and shape. Brain: No intracranial bleeds or masses. There is cerebral volume loss for age, with resultant ventricular and sulcal prominence. There are periventricular and deep white matter chronic small vessel ischemic changes. There is intracranial internal carotid artery atherosclerosis. Skull and face: Calvarium and visualized facial bones appear intact, without suspicious lesions. Sinuses: Visualized sinuses and mastoids are clear. IMPRESSION: No acute intracranial pathology. These findings were communicated via telephone to the ordering provider, Dr Vega, by Jared Bajwa MD on 12/20/2024 at 9:37 p.m. This study fulfills neurological imaging criteria for inclusion or exclusion of acute stroke therapies based on available published neurological guidelines. Dictated by: Jared Bajwa M.D. on 12/20/2024 at 21:31 Approved by: Jared Bajwa M.D. on 12/20/2024 at 21:38
--- NOTE | 2024-12-20 21:17 | DI.CT.S_ITS ---
PROCEDURE: CT ANGIO HEAD AND NECK INDICATIONS: code stroke TECHNIQUE: After the administration of intravenous contrast, 1 mm thick sections acquired from the aortic arch through the [place]. 3-dimensional wvuxsyq-wfitjaihd-dusyhmmmba (MIP) and/or volume rendering reformats were acquired of the central intracranial vasculature and neck separately. For radiation dose reduction, the following was used: automated exposure control, adjustment of mA and/or kV according to patient size. COMPARISON: None. FINDINGS: Image quality: Diagnostic. BRAIN: CSF spaces: Ventricles are normal in size and shape. Basal cisterns are patent. No extra-axial fluid collections. Brain: No significant abnormality of the brain can be seen. Skull and face: Calvarium and facial bones appear intact, without suspicious lesions. Orbits appear normal. Sinuses: Sinuses and mastoids are clear. HEAD CT ANGIOGRAPHY: Anterior circulation: Intracranial internal carotid arteries are normal in size and flow. The flow within the paired anterior cerebral arteries is normal and symmetric. The flow within the middle cerebral arteries is normal and symmetric. The anterior communicating artery is seen. No aneurysms are seen. Posterior circulation: Visualized portions of the vertebral arteries demonstrate normal caliber, and join to form a normal appearing basilar artery. Flow within the posterior cerebral arteries is normal and symmetric. No aneurysms are seen. NECK CT ANGIOGRAPHY: Carotid system: Retropharyngeal course of the common carotid arteries (4/256). The great vessels demonstrate a conventional anatomy as they arise from the aortic arch. The origins of the common carotid arteries appear patent. The common carotid arteries demonstrate normal caliber and courses. The bifurcation regions are both widely patent. The internal carotid arteries demonstrate normal calibers and courses. Posterior circulation: The left vertebral artery is dominant in the posterior circulation. The origins of the vertebral arteries both appear widely patent. The more superior extracranial portions of both vertebral arteries also demonstrate normal courses and calibers. They join to form a normal appearing basilar artery. Soft tissues: Visualized neck soft tissues demonstrate no suspicious abnormalities. Left optic globe scleral banding. Bones: No suspicious bony lesions. Visualized cervical spine appears normally aligned. IMPRESSION: No large vessel occlusion, dissection, or aneurysm in the visualized head and neck arterial vasculature. Any quantitative measurements of stenosis were performed using NASCET criteria. These findings were communicated via telephone to the ordering provider, Dr. Vega, by Jared Bajwa MD on 12/20/2024 at 9:37 p.m.. Dictated by: Jared Bajwa M.D. on 12/20/2024 at 21:38 Approved by: Jared Bajwa M.D. on 12/20/2024 at 21:41
[2024-12-20 21:31] LABS: Add Manual Diff / Slide Review NO; Basophils Absolute Auto 100 /uL (0-100); Basophils Percent Auto 1.5 % (0-2); Eosinophils Absolute Auto 300 /uL (0-450); Eosinophils Percent Auto 3.5 % (2-4); Hematocrit 46.8 % (41-53); Hemoglobin 15.7 g/dL (13.5-17.5); Lymphocytes Absolute Auto 2100 /uL (1100-4500); Mean Corpuscular HGB Conc 33.5 % (30-36); Mean Corpuscular Hemoglobin 31.2 PG (26-34); Mean Corpuscular Volume 93.2 fL (80-100); Monocytes Absolute Auto 700 /uL (0-900); Monocytes Percent Auto 8.2 % (3-14); Neutrophils Absolute Auto 4900 /uL (1500-7000); Neutrophils Percent Auto 60.8 % (50-75); Platelet Count 208 X10^3/uL (150-400); Red Blood Cell Count 5.03 X10^6/uL (4.5-5.9); Red Cell Distribution Width 14.2 % (11.6-14.8)
--- NOTE | 2024-12-20 21:31 | EKG_ITS ---
[facility] [address] [address] Test Date: 2024-12-20 Pat Name: Jorge Alberto Rabago Department: [facility] Room: Gender: Male [employer]: DOMINGO LAIRD : [id number] Requested By: Order Number: [id number] Reading MD: Efe Cespedes MD Measurements Intervals [place] Rate: 107 P: 56 IN: 192 QRS: -35 QRSD: 98 T: 59 QT: 336 QTc: 448 Interpretive Statements Sinus tachycardia Left axis deviation Electronically Signed On 12-21-2024 7:40:45 PST by Efe Cespedes MD
[2024-12-20 21:34] LABS: Prothrombin Time 11.6 SECONDS (9.4-12.5)
[2024-12-20 21:36] LABS: PTT Partial Thromboplastin Tim 35 SECONDS (25.1-36.5)
[2024-12-20 21:38] LABS: Alanine Aminotransferase 37 IU/L (<50); Albumin 4.6 g/dL (3.5-5.0); Albumin Globulin Ratio 1.8 (1.0-2.8); Alkaline Phosphatase 70 U/L (38-126); Aspartate Aminotransferase 37 IU/L (17-59); BUN Creatinine Ratio 17.9 (6-22); Bilirubin Total 0.3 mg/dL (0.2-1.3); Blood Urea Nitrogen 25 mg/dL (9-20); Calcium 9.4 mg/dL (8.4-10.2); Carbon Dioxide 26 mmol/L (22-32); Chloride 100 mmol/L (98-107); Creatine Kinase 81 U/L (55-170); Estimated Glomerular Filt Rate 51 mL/min (>60); Globulin 2.5 g/dL (1.7-4.1); Glucose 202 mg/dL (80-110); HEMOLYSIS < 15 (0-50); Magnesium 1.6 mg/dL (1.6-2.3); Potassium 4.2 mmol/L (3.4-5.1); Sodium 137 mmol/L (137-145); Total Protein 7.1 g/dL (6.3-8.2)
[2024-12-20 21:50] LABS: Troponin I < 0.012 ng/mL (0.01-0.034)
[2024-12-20 21:58] LABS: Ur Creatinine Normal (Normal); Ur Specific Gravity Normal (Normal); Urine pH Normal (Normal)
[2024-12-20 21:59] LABS: UR Morphine/Opiate cutoff 300 Negative (Negative); Urine Amphetamines Negative (Negative); Urine Barbiturates Negative (Negative); Urine Benzodiazepines Positive (Negative); Urine Cocaine Negative (Negative); Urine MDMA Negative (Negative); Urine Methadone Negative (Negative); Urine Methamphetamines Negative (Negative); Urine Oxycodone Negative (Negative); Urine Phencyclidine Negative (Negative); Urine Tetrahydrocannabinol Negative (Negative); Urine Tricyclic Antidepressant Negative (Negative)
--- NOTE | 2024-12-20 22:37 | ED.NEUROSD ---
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 this evening while watching television, suddenly had sensation of double vision and inability to focus while watching the television, had dizziness sensation, unsteady gait, believes he could not get his words out but nearby did not appreciate any change in his speech, and reported that he seemed to be able to speak, that he had some diaphoresis, denied sensation of palpitations or chest pain. Symptoms persisted on arrival but resolved while he was in the CT scanner, significantly improved. On Anticoagulants: No Related Data Home Medications Medication Instructions Recorded Confirmed latanoprost 0.005 % eye drops 1 drp EYE-BOTH BEDTIME 04/14/18 12/21/24 dorzolamide 2 % eye drops (Trusopt) drp ophthalmic (eye) DAILY 03/07/19 09/06/24 Previous Rx's Medication Instructions Recorded Onetouch Testing strips #200 ea 02/11/23 Disabled Parking Permit #1 ea 01/17/24 fluticasone furoate 100 1 inh inhalation DAILY #90 ea 03/13/24 mcg/actuation blister powder for inhalation (Arnuity Ellipta) metoprolol tartrate 25 mg tablet 12.5 mg (1/2 x 25 mg) PO BID #90 05/11/24 tabs atorvastatin 40 mg tablet 40 mg PO DAILY #90 tabs 08/07/24 celecoxib 200 mg capsule See Rx Instructions .Route 08/07/24 .COMPLEX #180 caps lisinopril 20 mg tablet 20 mg PO DAILY #90 tabs 08/07/24 metformin 1,000 mg tablet 1,000 mg PO BIDWMEAL #180 tabs 08/07/24 lorazepam 1 mg tablet 1 mg PO DAILY PRN anxiety #30 tabs 09/06/24 glipizide 5 mg tablet 5 mg PO BID #180 tabs 09/13/24 Allergies Allergy/AdvReac Type Severity Reaction Status Date / Time erythromycin base Allergy Severe jaundice Verified 12/20/24 21:31 [ERYTHROMYCIN BASE] moxifloxacin [From AVELOX] AdvReac Intermediate anxious Verified 12/20/24 21:31 Review of Systems Hematologic/Lymphatic On Anticoagulants: No Patient History Medical History (Updated 12/20/24 @ 23:23 by Lul Vega MD) Fatigue Bilateral knee pain Injury of left ulnar nerve Sciatic leg pain Bronchiectasis Skin cancer (1981) Hyponatremia (Unknown) Pulsatile tinnitus of both ears (2009) Glaucoma (2003) Diverticulitis (2003) Diabetes (~2004) Hypertension (Unknown) Bronchitis (Unknown) Insomnia (Unknown) Tendonitis (Unknown) Acne conglobata (1954) Asthma (Unknown) Allergy (Unknown) Anxiety (2010) Padilla's palsy (2010) Arthritis (2004) Chronic back pain (2009) Hepatitis A (~1966) Surgical History History of cataract removal with insertion of prosthetic lens Family History Father Hypertension Hyperlipidemia Mother Stroke Grandfather Hypertension Hyperlipidemia Social History household members: spouse Smoking Status: Never smoker alcohol intake: current substance use type: does not use Smoking Status: Never smoker alcohol intake frequency: 0-2 drinks per day Exam Narrative Exam Narrative: GENERAL: Well-developed patient, in mild distress. HEAD: Atraumatic. Normocephalic. EYES: Pupils equal round and reactive. Extraocular motions intact. No scleral icterus. No injection or drainage. ENT: Nose without bleeding, purulent drainage. Throat without erythema, tonsillar hypertrophy or exudate. Airway patent. NECK: Trachea midline. Non tender CARDIOVASCULAR: Regular rate and rhythm without murmurs, gallops, or rubs. RESPIRATORY: Clear to auscultation. Breath sounds equal bilaterally. No wheezes, rales, or rhonchi. GASTROINTESTINAL: Abdomen soft, non-tender, nondistended. EXTREMITIES: No edema or joint tenderness. BACK: Nontender without deformity or crepitance. No flank tenderness. NEURO: AOx3. Clear speech, at bedside believes his speech is at baseline. Motor 5/5 bilateral upper extremities. Motor 5/5 bilateral lower extremities. Pupils equal round reactive to light, extraocular muscles intact, no diplopia symptoms. No visual field deficits. No facial droop. Shoulder shrugs normal. Extrudes and deviates tongue normally. Euttud-yg-moca testing reassuring and normal bilaterally. Intact sensation light touch to face arm leg bilateral. DTRs patellar symmetrically decreased equal. Babinski downgoing toes. SKIN: Brought patches of scarring that patient attributes to history of cystic acne, predominantly truncal and facial Initial Vital Signs Initial Vital Signs: Vital Signs Temperature 98.9 F 12/20/24 21:21 Pulse Rate 104 H 12/20/24 21:21 Respiratory Rate 18 12/20/24 21:21 Blood Pressure 178/68 H 12/20/24 21:21 Pulse Oximetry 92 12/20/24 21:21 Oxygen Delivery Method Room Air 12/20/24 21:21 Course Orders Ordered: ED Orders 12/20/24 21:05 Complete Blood Count AUTO DIFF Stat Comprehensive Metabolic Panel Stat Magnesium Stat PTT Partial Thromboplastin Alfredo Stat Prothrombin Time INR Stat Troponin & CK Cardiac Panel Stat 12/20/24 21:16 CT Stroke Stat XR chest 1V Stat EKG-12 Lead Stat 12/20/24 21:17 CT angio head and neck Stat 12/20/24 21:45 Urine Drug Screen, Rapid Stat 12/20/24 23:42 Consult to Occupational Therapy Evaluate & Treat Consult to Physical Therapy Evaluate & Treat 12/20/24 23:45 Basic Metabolic Panel DAILY Complete Blood Count AUTO DIFF DAILY Acetaminophen (Acetaminophen 325 Mg Tablet) 650 mg PO Q6H PRN PRN Reason: Fever/Mild Pain (1-3) Atorvastatin Calcium (Atorvastatin 20 Mg Tablet) 40 mg PO DAILY [facility] Budesonide (Budesonide 0.5 Mg/2 Ml Neb) 0.5 mg INH RTBID [facility] Heparin Sodium (Porcine) (Heparin 5,000 Unit/Ml Vial) 5,000 unit SUBCUT BID EVE Last Admin: 12/20/24 23:58 Dose: 5,000 unit Documented By: INNA Latanoprost (Latanoprost 0.005% Ophth 2.5 Ml) 1 drops EYE-BOTH BEDTIME EVE Lisinopril (Lisinopril 20 Mg Tablet) 20 mg PO DAILY EVE Lorazepam (Lorazepam 1 Mg Tablet) 1 mg PO DAILY PRN PRN Reason: anxiety Meclizine HCl (Meclizine Hcl 12.5 Mg Tablet) 25 mg PO Q6HR PRN PRN Reason: Vertigo Last Admin: 12/21/24 03:06 Dose: 25 mg Documented By: SKIP Metoprolol Tartrate (Metoprolol Ir 25 Mg Tablet) 12.5 mg PO BID EVE Naloxone HCl (Naloxone 0.4 Mg/Ml Vial) 0.2 mg IV Q2MIN PRN PRN Reason: Opiate Reversal (Glipizide 5 Mg (Tablet)) 5 mg PO BID EVE Ondansetron HCl (Ondansetron 4 Mg/2 Ml Inj) 4 mg IV NOW PRN PRN Reason: Nausea And Vomiting Last Admin: 12/20/24 23:07 Dose: 4 mg Documented By: INNA Ondansetron HCl (Ondansetron 4 Mg Odt) 4 mg SL NOW PRN PRN Reason: Nausea And Vomiting Ondansetron HCl (Ondansetron 4 Mg/2 Ml Inj) 4 mg IV Q8HR PRN PRN Reason: Nausea And Vomiting Discontinued Medications Aspirin (Aspirin 81 Mg Chew Tab) 324 mg PO NOW ONE Stop: 12/20/24 22:59 Last Admin: 12/20/24 23:07 Dose: 324 mg Documented By: INNA Influenza Virus Vaccine (Influenza Hd Vaccine 0.5 Ml Syringe) 0.5 ml IM .ONCE ONE Stop: 12/21/24 01:49 Vital Signs Vital signs: Vital Signs - 8 hr 12/20/24 21:21 12/20/24 21:28 12/20/24 21:29 Temperature 98.9 F Pulse Rate 104 H 103 H 104 H Respiratory Rate 18 15 14 Blood Pressure 178/68 H Pulse Oximetry 92 93 Oxygen Delivery Method Room Air 12/20/24 21:29 12/20/24 21:30 12/20/24 21:30 Temperature Pulse Rate 104 H Respiratory Rate 12 Blood Pressure 196/89 H 178/68 H Pulse Oximetry 91 Oxygen Delivery Method 12/20/24 22:00 12/20/24 22:00 12/20/24 22:30 Temperature Pulse Rate 100 H Respiratory Rate 18 Blood Pressure 159/70 H 137/63 Pulse Oximetry 91 Oxygen Delivery Method 12/20/24 22:30 12/20/24 23:00 12/20/24 23:00 Temperature Pulse Rate 95 H 99 H Respiratory Rate 19 19 Blood Pressure 149/69 H Pulse Oximetry 91 91 Oxygen Delivery Method 12/20/24 23:30 12/20/24 23:30 Temperature Pulse Rate 89 Respiratory Rate 15 Blood Pressure 151/72 H Pulse Oximetry 92 Oxygen Delivery Method MDM - Neuro Symptoms/Deficit Lab Data Attestation: I reviewed the patient's lab results. Lab results narrative: White blood cell count 8000, hemoglobin 15.7, platelets 208, BUN 25 with creatinine 1.4. Glucose 202. Sodium 137 with a potassium 4.2, serum CO2 26. Anion gap 11. Liver functions unremarkable. Troponin negative/unmeasurable. Urine tox screen positive for benzodiazepines otherwise negative. 12/20/24 21:05 12/20/24 21:05 Labs: Lab Results 12/20/24 12/20/24 Range/Units 21:05 21:45 WBC 8.0 (4.5-11.0) X10^3/uL RBC 5.03 (4.5-5.9) X10^6/uL Hgb 15.7 (13.5-17.5) g/dL Hct 46.8 (41-53) % MCV 93.2 (80-100) fL MCH 31.2 (26-34) PG MCHC 33.5 (30-36) % RDW 14.2 (11.6-14.8) % Plt Count 208 (150-400) X10^3/uL Neut % (Auto) 60.8 (50-75) % Lymph % (Auto) 26.0 (25-40) % [place] % (Auto) 8.2 (3-14) % Eos % (Auto) 3.5 (2-4) % Baso % (Auto) 1.5 (0-2) % Neut # (Auto) 4900 (2094-3251) /uL Lymph # (Auto) 2100 (4489-1892) /uL [place] # (Auto) 700 (0-900) /uL Eos # (Auto) 300 (0-450) /uL Baso # (Auto) 100 (0-100) /uL PT 11.6 (9.4-12.5) SECONDS INR 1.0 (0.9-1.3) APTT 35 (25.1-36.5) SECONDS Sodium 137 (137-145) mmol/L Potassium 4.2 (3.4-5.1) mmol/L Chloride 100 (98-107) mmol/L Carbon Dioxide 26 (22-32) mmol/L BUN 25 H (9-20) mg/dL Creatinine 1.40 H (0.66-1.25) mg/dL Estimated GFR 51 L (>60) mL/min BUN/Creatinine Ratio 17.9 (6-22) Glucose 202 H (80-110) mg/dL Calcium 9.4 (8.4-10.2) mg/dL Magnesium 1.6 (1.6-2.3) mg/dL Total Bilirubin 0.3 (0.2-1.3) mg/dL AST 37 (17-59) IU/L ALT 37 (<50) IU/L Alkaline Phosphatase 70 (38-126) U/L Total Creatine Kinase 81 (55-170) U/L Troponin I < 0.012 (0.01-0.034) ng/mL Total Protein 7.1 (6.3-8.2) g/dL Albumin 4.6 (3.5-5.0) g/dL Globulin 2.5 (1.7-4.1) g/dL Albumin/Globulin Ratio 1.8 (1.0-2.8) U Opiates 300ng/mL cut Negative (Negative) Ur Oxycodone Screen Negative (Negative) Urine Methadone Screen Negative (Negative) Ur Barbiturates Screen Negative (Negative) U Tricyclic Antidepress Negative (Negative) Ur Phencyclidine Scrn Negative (Negative) Ur Amphetamines Screen Negative (Negative) U Methamphetamines Scrn Negative (Negative) Ur MDMA Scrn (Ecstasy) Negative (Negative) U Benzodiazepines Scrn Positive H (Negative) Urine Cocaine Screen Negative (Negative) U Marijuana (THC) Screen Negative (Negative) Urine pH Normal (Normal) Urine Specific [place] Normal (Normal) Ur Creatinine Normal (Normal) Point of Care Testing Glucose POC 181 Urine Dip Bedside Urine Glucose Negative Bedside Urine Bilirubin - Negative Bedside Urine Ketone +/- 5 Urine Specific [place] 1.015 Bedside Urine Occult Blood - Negative Bedside Urine pH 6.0 Bedside Urine Protein - Negative Bedside Urine Urobilinogen +/- 1mg Bedside Urine Nitrite - Negative Bedside Urine Leukocytes - Negative Esterase Imaging Data Chest x-ray: Radiologist's Impression: [address] [address] XRay Report Signed Patient: Jorge Alberto Rabago MR#: [id number] : 1945 Acct:[id number] Age/Sex: 79 / M Date of Service: 12/20/24 Loc: ED Accession Number: [id number] Procedure: XR chest 1V Ordering Provider: Lul Vega MD PROCEDURE: XR CHEST 1V INDICATIONS: Possible stroke TECHNIQUE: One view of the chest was acquired. COMPARISON: [facility], CR, XR CHEST 2V, 03/17/2023, 12:09. [facility], CR, XR CHEST 2V, 03/07/2019, 10:55. FINDINGS: Surgical changes and devices: None. Lungs and pleura: Lungs are clear. No pleural effusions or pneumothorax. Mediastinum: Tortuous contour of the thoracic aorta. Mediastinal contours appear normal. Heart size is normal. Bones and chest wall: No suspicious bony lesions. Overlying soft tissues appear unremarkable. IMPRESSION: No acute cardiothoracic process. Dictated by: Jared Bajwa M.D. on 12/20/2024 at 21:55 Approved by: Jared Bajwa M.D. on 12/20/2024 at 21:56 CT scan - head: Radiologist's Impression: [place] [address] CT Scan Report Signed Patient: Jorge Alberto Rabago MR#: [id number] : 1945 Acct:[id number] Age/Sex: 79 / M Date of Service: 12/20/24 Loc: ED Accession Number: [id number] Procedure: CT Stroke Ordering Provider: Lul Vega MD PROCEDURE: CT STROKE INDICATIONS: Positive BE-FAST, Stroke symptoms TECHNIQUE: Noncontrast 4.5 mm thick angled axial sections acquired from the foramen magnum to the vertex, with coronal reformats. For radiation dose reduction, the following was used: automated exposure control, adjustment of mA and/or kV according to patient size. COMPARISON: [facility], CT, CT ANGIO HEAD AND NECK, 12/20/2024, 21:20. FINDINGS: Image quality: Diagnostic. CSF spaces: Basal cisterns are patent. No extra-axial fluid collections. The ventricles are symmetric in size and shape. Brain: No intracranial bleeds or masses. There is cerebral volume loss for age, with resultant ventricular and sulcal prominence. There are periventricular and deep white matter chronic small vessel ischemic changes. There is intracranial internal carotid artery atherosclerosis. Skull and face: Calvarium and visualized facial bones appear intact, without suspicious lesions. Sinuses: Visualized sinuses and mastoids are clear. IMPRESSION: No acute intracranial pathology. These findings were communicated via telephone to the ordering provider, Dr Vega, by Jared Bajwa MD on 12/20/2024 at 9:37 p.m. This study fulfills neurological imaging criteria for inclusion or exclusion of acute stroke therapies based on available published neurological guidelines. Dictated by: Jared Bajwa M.D. on 12/20/2024 at 21:31 Approved by: Jared Bajwa M.D. on 12/20/2024 at 21:38 CTA - brain/neck: Radiologist's Impression: [place] [address] CT Scan Report Signed Patient: Jorge Alberto Rabago MR#: [id number] : 1945 Acct:[id number] Age/Sex: 79 / M Date of Service: 12/20/24 Loc: ED Accession Number: [id number] Procedure: CT angio head and neck Ordering Provider: Lul Vega MD PROCEDURE: CT ANGIO HEAD AND NECK INDICATIONS: code stroke TECHNIQUE: After the administration of intravenous contrast, 1 mm thick sections acquired from the aortic arch through the [place]. 3-dimensional efwpeed-vlmlwiqnu-ryihfwhggy (MIP) and/or volume rendering reformats were acquired of the central intracranial vasculature and neck separately. For radiation dose reduction, the following was used: automated exposure control, adjustment of mA and/or kV according to patient size. COMPARISON: None. FINDINGS: Image quality: Diagnostic. BRAIN: CSF spaces: Ventricles are normal in size and shape. Basal cisterns are patent. No extra-axial fluid collections. Brain: No significant abnormality of the brain can be seen. Skull and face: Calvarium and facial bones appear intact, without suspicious lesions. Orbits appear normal. Sinuses: Sinuses and mastoids are clear. HEAD CT ANGIOGRAPHY: Anterior circulation: Intracranial internal carotid arteries are normal in size and flow. The flow within the paired anterior cerebral arteries is normal and symmetric. The flow within the middle cerebral arteries is normal and symmetric. The anterior communicating artery is seen. No aneurysms are seen. Posterior circulation: Visualized portions of the vertebral arteries demonstrate normal caliber, and join to form a normal appearing basilar artery. Flow within the posterior cerebral arteries is normal and symmetric. No aneurysms are seen. NECK CT ANGIOGRAPHY: Carotid system: Retropharyngeal course of the common carotid arteries (4/256). The great vessels demonstrate a conventional anatomy as they arise from the aortic arch. The origins of the common carotid arteries appear patent. The common carotid arteries demonstrate normal caliber and courses. The bifurcation regions are both widely patent. The internal carotid arteries demonstrate normal calibers and courses. Posterior circulation: The left vertebral artery is dominant in the posterior circulation. The origins of the vertebral arteries both appear widely patent. The more superior extracranial portions of both vertebral arteries also demonstrate normal courses and calibers. They join to form a normal appearing basilar artery. Soft tissues: Visualized neck soft tissues demonstrate no suspicious abnormalities. Left optic globe scleral banding. Bones: No suspicious bony lesions. Visualized cervical spine appears normally aligned. IMPRESSION: No large vessel occlusion, dissection, or aneurysm in the visualized head and neck arterial vasculature. Any quantitative measurements of stenosis were performed using NASCET criteria. These findings were communicated via telephone to the ordering provider, Dr. Vega, by Jared Bajwa MD on 12/20/2024 at 9:37 p.m.. Dictated by: Jared Bajwa M.D. on 12/20/2024 at 21:38 Approved by: Jared Bajwa M.D. on 12/20/2024 at 21:41 ECG Data Attestation: I personally reviewed and interpreted this ECG as follows: Interpretation: Sinus tachycardia with rate 107, no obvious ST segment elevation or depression changes. [place] 192, QRS 98, QTC 448. [facility] Narrative Medical decision making narrative: 79-year-old right-handed male with history of remote Padilla's palsy but no known TIA stroke symptoms, at 8:00 p.m. had visual disturbance, unable to focus vision while watching television, with sensation of difficulty getting his speech out, double vision in the right side (unclear if right eye or right field of vision), and dizziness spinning vertigo sensation. Still had symptoms on arrival to the emergency department, which shortly therafter resolved in CT scanner. He has slight dizziness but no spinning sensation, all of the other symptoms resolved. CT head noncontrast, no acute changes. See radiology report. CT angio head/neck vessels, no significant narrowing or thromboses. See radiology report. Chest x-ray unremarkable. See radiology report. Screening labs unremarkable. EKG shows normal sinus rhythm. Patient able to swallow well, chewable aspirin 324 mg. Advised further workup overnight admission telemetry, echocardiogram, brain MRI study, fasting lipid panel. He is agreeable. We will contact hospitalist. [id number], case discussed with hospitalist Dr Bautista who accepts patient for admission Critical Care Time Critical Care Time Critical Care Time: Yes Total Critical Care Time: 35 Attestation: The high probability of a clinically significant, sudden or life threatening deterioration of the [neuro, cerebrovascular] system(s) required my full and direct attention, intervention and personal management. The aggregate critical care time was [35] minutes. This time is in addition to time spent performing reported procedures but includes the following: [x] Data Review and interpretation [x] Patient assessment and monitoring of vital signs [x] Documentation [x] Medication orders and management Discharge Plan Departure Patient Disposition: Admitted as Observation Clinical Impression: Transient ischemic attack (TIA) Admit Date/Time: 12/20/24 23:54 Admit Provider: Kevyn Bautista
[2024-12-20] MEDS: ASPIRIN 81 MG CHEW TAB 324 MG PO (23:07)
[2024-12-20] MEDS: ONDANSETRON 4 MG/2 ML INJ IV (23:07)
--- NOTE | 2024-12-20 23:12 | PC.NURSE ---
Sats running low 90's, clear lungs. Gave pt incentive spirometer and he demonstrated understanidng of use, pulling 2000 TV.
[2024-12-20] MEDS: HEPARIN 5,000 UNIT/ML VIAL 5000 UNIT SUBCUT (23:58)
[2024-12-21] VITALS: PULSE 86; RESP 20; TEMP 36.9; O2SAT 94
--- NOTE | 2024-12-21 | DI.MRI.S_ITS ---
PROCEDURE: MR HEAD/BRAIN WO CON INDICATIONS: rule out cva TECHNIQUE: Non-contrast axial T1 spin echo, axial T2 fast spin echo, sagittal and axial FLAIR, coronal T2 fast spin echo, axial gradient echo, axial diffusion and ADC through the brain. COMPARISON: [facility], CT, CT STROKE, 12/20/2024, 21:20. FINDINGS: Image quality: Excellent. CSF spaces: Ventricles appear symmetric in size and shape. Basal cisterns are patent. No extra-axial fluid collections. Brain: No intracranial bleeds or mass effects. There is cerebral volume loss for age. There are very mild, age-appropriate periventricular and deep white matter chronic small vessel ischemic changes. Brainstem appears normal. Diffusion-weighted images show no acute infarct. No chronic ischemic insults. Normal intravascular flow voids are present. Skull and face: Calvarial bone marrow is normal in signal. Orbits are normal. Sinuses: Sinuses and mastoids are clear. IMPRESSION: Negative brain MRI for patient age. No acute intracranial process. Dictated by: Baljinder Perez M.D. on 12/21/2024 at 11:27 Approved by: Baljinder Perez M.D. on 12/21/2024 at 11:36
[2024-12-21 02:23] VITALS: BP 165/103; PULSE 89; RESP 18; TEMP 36.5; O2SAT 92
[2024-12-21] MEDS: MECLIZINE HCL 12.5 MG TABLET 25 MG PO (03:06)
[2024-12-21 04:14] VITALS: BP 166/110; PULSE 81; RESP 18; TEMP 36.4; O2SAT 91
[2024-12-21] MEDS: LORazepam 1 MG TABLET PO (05:11)
[2024-12-21 06:18] LABS: Add Manual Diff / Slide Review NO; Basophils Absolute Auto 100 /uL (0-100); Eosinophils Absolute Auto 200 /uL (0-450); Eosinophils Percent Auto 2.7 % (2-4); Hematocrit 41.2 % (41-53); Hemoglobin 13.9 g/dL (13.5-17.5); Lymphocytes Absolute Auto 1600 /uL (1100-4500); Lymphocytes Percent Auto 23.5 % (25-40); Mean Corpuscular HGB Conc 33.7 % (30-36); Mean Corpuscular Hemoglobin 31.4 PG (26-34); Monocytes Absolute Auto 500 /uL (0-900); Monocytes Percent Auto 7.9 % (3-14); Neutrophils Absolute Auto 4500 /uL (1500-7000); Neutrophils Percent Auto 64.9 % (50-75); Platelet Count 177 X10^3/uL (150-400); Red Blood Cell Count 4.43 X10^6/uL (4.5-5.9); White Blood Cell Count 6.9 X10^3/uL (4.5-11.0)
[2024-12-21 06:23] LABS: BUN Creatinine Ratio 22.2 (6-22); Blood Urea Nitrogen 26 mg/dL (9-20); Calcium 8.8 mg/dL (8.4-10.2); Carbon Dioxide 26 mmol/L (22-32); Chloride 102 mmol/L (98-107); Estimated Glomerular Filt Rate > 60 mL/min (>60); Glucose 163 mg/dL (80-110); HEMOLYSIS < 15 (0-50); Potassium 4.4 mmol/L (3.4-5.1); Sodium 135 mmol/L (137-145)
--- NOTE | 2024-12-21 06:52 | P.HP_ITS ---
History of Present Illness History of Present Illness Chief complaint: Stroke Narrative: 79-year-old male with past medical history of hypertension, hyperlipidemia, and [id number] diabetes presents with double vision and concern for strokelike symptoms. 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 This evening around 8 PM, the patient was watching TV when suddenly he noticed double vision and inability to focus while watching TV. The patient also had some unsteady gait but denies vertigo. The patient states that he could not get his words out easily but the patient's states that the patient was speaking normally. Otherwise the patient denies any focal weakness or changes in sensation. The patient also denies any nausea, vomiting, fever, chills, headache, chest pain or shortness of breath. In the emergency room, the patient was hemodynamically stable. Patient's symptoms did continue to persist but improved when he was in the CT scanner. The patient was noted to be nonfocal on exam per our ER physician. CT scan of the head and and neck with contrast shows no signs of acute occlusion or signs of acute stroke on CT without contrast. Due to concern for stroke our ER physician recommended to admit the patient to monitor overnight for any underlying atrial fibrillation or flutter as well as getting an MRI of the brain in the morning. [facility] Medical History (Updated 12/20/24 @ 23:23 by Lul Vega MD) Fatigue Bilateral knee pain Injury of left ulnar nerve Sciatic leg pain Bronchiectasis Skin cancer (1981) Hyponatremia (Unknown) Pulsatile tinnitus of both ears (2009) Glaucoma (2003) Diverticulitis (2003) Diabetes (~2004) Hypertension (Unknown) Bronchitis (Unknown) Insomnia (Unknown) Tendonitis (Unknown) Acne conglobata (1954) Asthma (Unknown) Allergy (Unknown) Anxiety (2010) Padilla's palsy (2010) Arthritis (2004) Chronic back pain (2009) Hepatitis A (~1966) Surgical History History of cataract removal with insertion of prosthetic lens Family History Father Hypertension Hyperlipidemia Mother Stroke Grandfather Hypertension Hyperlipidemia Social History household members: spouse Smoking Status: Never smoker alcohol intake: current substance use type: does not use Meds Home Medications and Allergies Home Medications Medication Instructions Recorded Confirmed Type latanoprost 0.005 % eye drops 1 drp EYE-BOTH BEDTIME 04/14/18 12/21/24 History dorzolamide 2 % eye drops (Trusopt) drp ophthalmic (eye) DAILY 03/07/19 09/06/24 History Onetouch Testing strips #200 ea 02/11/23 06/05/24 Rx Disabled Parking Permit #1 ea 01/17/24 06/05/24 Rx fluticasone furoate 100 1 inh inhalation DAILY #90 ea 03/13/24 12/21/24 Rx mcg/actuation blister powder for inhalation (Arnuity Ellipta) metoprolol tartrate 25 mg tablet 12.5 mg (1/2 x 25 mg) PO BID #90 05/11/24 12/21/24 Rx tabs atorvastatin 40 mg tablet 40 mg PO DAILY #90 tabs 08/07/24 12/21/24 Rx celecoxib 200 mg capsule See Rx Instructions .Route 08/07/24 12/21/24 Rx .COMPLEX #180 caps lisinopril 20 mg tablet 20 mg PO DAILY #90 tabs 08/07/24 12/21/24 Rx metformin 1,000 mg tablet 1,000 mg PO BIDWMEAL #180 tabs 08/07/24 12/21/24 Rx lorazepam 1 mg tablet 1 mg PO DAILY PRN anxiety #30 tabs 09/06/24 12/21/24 Rx glipizide 5 mg tablet 5 mg PO BID #180 tabs 09/13/24 12/21/24 Rx Allergies Allergy/AdvReac Type Severity Reaction Status Date / Time erythromycin base Allergy Severe jaundice Verified 12/20/24 21:31 [ERYTHROMYCIN BASE] moxifloxacin [From AVELOX] AdvReac Intermediate anxious Verified 12/20/24 21:31 Review of Systems Review of Systems ROS: Yes All systems reviewed with the patient and are negative except as otherwise documented Exam Vital Signs (past 8 hours): - 12/20/24 23:00 12/20/24 23:00 12/20/24 23:30 Temperature Pulse Rate 99 H 89 Respiratory Rate 19 15 Blood Pressure 149/69 H Pulse Oximetry 91 92 Oxygen Delivery Method Oxygen Flow Rate 12/20/24 23:30 12/21/24 00:00 12/21/24 02:23 Temperature 98.4 F 97.7 F Pulse Rate 86 89 Respiratory Rate 20 18 Blood Pressure 151/72 H 165/103 H Pulse Oximetry 94 92 Oxygen Delivery Method Room Air Oxygen Flow Rate 0 12/21/24 04:14 Temperature 97.5 F L Pulse Rate 81 Respiratory Rate 18 Blood Pressure 166/110 H Pulse Oximetry 91 Oxygen Delivery Method Oxygen Flow Rate 0 Oxygen Delivery Method Room Air Oxygen Flow Rate 0 Narrative Exam Narrative: Physical Exam: GENERAL: The patient is not in any acute distressed. Awake and alert. HEENT: Nonicteric sclerae, PERRLA, EOMI. Oropharynx clear. Moist mucous membranes. Conjunctivae appear well perfused. HEART: Regular rate and rhythm without murmurs. No lower extremities edema. LUNGS: Clear to auscultation bilaterally. No wheezing, crackles or rhonchi ABDOMEN: Soft, positive bowel sounds, nontender. SKIN: No rash, no excessive bruising, petechiae, or purpura. NEUROLOGIC: AxO x 3. Cranial nerves II-XII intact without motor/sensory deficit. Objective Labs 12/21/24 05:30 12/21/24 05:30 Labs: Laboratory Results - last 24 hr 12/20/24 12/20/24 12/21/24 21:05 21:45 05:30 WBC 8.0 6.9 RBC 5.03 4.43 L Hgb 15.7 13.9 Hct 46.8 41.2 MCV 93.2 93.0 MCH 31.2 31.4 MCHC 33.5 33.7 RDW 14.2 14.0 Plt Count 208 177 Neut % (Auto) 60.8 64.9 Lymph % (Auto) 26.0 23.5 L Wilkin % (Auto) 8.2 7.9 Eos % (Auto) 3.5 2.7 Baso % (Auto) 1.5 1.0 Neut # (Auto) 4900 4500 Lymph # (Auto) 2100 1600 Wilkin # (Auto) 700 500 Eos # (Auto) 300 200 Baso # (Auto) 100 100 PT 11.6 INR 1.0 APTT 35 Sodium 137 135 L Potassium 4.2 4.4 Chloride 100 102 Carbon Dioxide 26 26 BUN 25 H 26 H Creatinine 1.40 H 1.17 Estimated GFR 51 L > 60 BUN/Creatinine Ratio 17.9 22.2 H Glucose 202 H 163 H Calcium 9.4 8.8 Magnesium 1.6 Total Bilirubin 0.3 AST 37 ALT 37 Alkaline Phosphatase 70 Total Creatine Kinase 81 Troponin I < 0.012 Total Protein 7.1 Albumin 4.6 Globulin 2.5 Albumin/Globulin Ratio 1.8 U Opiates 300ng/mL cut Negative Ur Oxycodone Screen Negative Urine Methadone Screen Negative Ur Barbiturates Screen Negative U Tricyclic Antidepress Negative Ur Phencyclidine Scrn Negative Ur Amphetamines Screen Negative U Methamphetamines Scrn Negative Ur MDMA Scrn (Ecstasy) Negative U Benzodiazepines Scrn Positive H Urine Cocaine Screen Negative U Marijuana (THC) Screen Negative Urine pH Normal Urine Specific Stendal Normal Ur Creatinine Normal Assessment & Plan Assessment & Plan narrative: Strokelike symptoms with double visions and imbalance. Admit the patient to medical telemetry under observation. Patient symptoms now improving. Of note CT with and without contrast of head and neck shows no acute finding. PT/OT/ST. Will also obtain brain MRI with brainstem in the morning to assess for any underlying stroke. Continue aspirin and statin. Check lipid panel and A1c. [id number] diabetes. Hold home oral medication. Monitor give subcu insulin as needed. Hypertension. Monitor blood pressure and resume home medication accordingly. Hyperlipidemia. Check lipid panel as above and resume home statin. DVT prophylaxis heparin subcu. CODE STATUS DNR/DNI. Disposition likely home in 1 to 2 days. Time-Based Coding :: [TOTAL MINUTES] spent with patient and on the chart (including review of chart, obtaining history, exam, reviewing outside data, placing orders, documenting exam and treatment plan, and counseling patient) on [DATE]. Quality VTE Deep Vein Thrombosis/Pulmonary Embolism Present on Admission: Yes
[2024-12-21 08:00] VITALS: BP 171/101; PULSE 92; RESP 18; TEMP 36.5; O2SAT 92
[2024-12-21 08:54] LABS: Cholesterol 123 mg/dL (140-199); HDL Cholesterol 43 mg/dL (40-60); LDL Cholesterol Calculated 44 mg/dL (<100); Triglycerides 182 mg/dL (35-150)
[2024-12-21] MEDS: LORazepam 2 MG/ML INJ 1 MG IV (09:56)
[2024-12-21] MEDS: INSULIN LISPRO 100 UNIT/ML 3ML VIAL SUBCUT ×2 (09:56→12:59)
[2024-12-21 09:57] VITALS: BP 171/101; PULSE 92
[2024-12-21] MEDS: METOPROLOL IR 25 MG TABLET 12.5 MG PO (09:57)
[2024-12-21] MEDS: ATORVASTATIN 20 MG TABLET 40 MG PO (09:57)
[2024-12-21] MEDS: lisinopriL 20 MG TABLET PO (09:57)
[2024-12-21] MEDS: ASPIRIN EC 81 MG TABLET PO (09:57)
[2024-12-21] MEDS: HEPARIN 5,000 UNIT/ML VIAL 5000 UNIT SUBCUT (09:58)
--- NOTE | 2024-12-21 10:16 | SLP.IPNOTE ---
Addendum entered and electronically signed by Elisabet Clay 12/21/24 14:06: Re-attempted evaluation around 14:00. Pt finished with OT evaluation shortly prior and unavailable. SLUMS score 28/30 per OT. Will follow-up tomorrow pending discharge plan. Original Note: Order received and RN consulted. Pt on way to MRI this morning and not available for evaluation. Will re-attempt later in day as MEDICAL SCHEDULER schedule allows.
--- NOTE | 2024-12-21 10:44 | PT.IIE ---
Surgical History (Last Reviewed 03/29/18 @ 17:35 by Devendra Lees MD) History of cataract removal with insertion of prosthetic lens Medical History (Last Updated 05/03/23 @ 12:10 by Edmond Barone MD) Acne conglobata (1955) Allergy (Unknown) Anxiety (2011) Arthritis (2005) Asthma (Unknown) Padilla's palsy (2010) Bilateral knee pain Bronchiectasis Bronchitis (Unknown) Chronic back pain (2009) Diabetes (~2003) Diverticulitis (2003) Fatigue Glaucoma (2003) Hepatitis A (~1966) Hypertension (Unknown) Hyponatremia (Unknown) Injury of left ulnar nerve Insomnia (Unknown) Pulsatile tinnitus of both ears (2009) Sciatic leg pain Skin cancer (1981) Tendonitis (Unknown) Physical Therapy Inpatient Evaluation/Re-Eval M1 PT/OT-IP Prior Functional Status Start: 12/21/24 08:01 Freq: NEEDED Status: Active Protocol: Document 12/21/24 08:54 MB (Rec: 12/21/24 09:42 MB [id number]) Medical Review Prior Functional Status Medical History Reviewed Yes Diet/Fluid Consistency Regular Communication WNLs Mobility and Gait Mod I with hurrycane in right hand, history of B knee trouble and left SI issues Activities of Daily Living and IADL's Mod I Social History Household Members spouse Living Arrangements House Number of Floors (Floors) Two Floors Number of Stairs To Enter/Railing? 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, left eye changes M2 PT-IP Current Condition Start: 12/21/24 08:01 Freq: NEEDED Status: Active Protocol: Document 12/21/24 08:54 MB (Rec: 12/21/24 09:42 MB [id number]) Physical Therapy Current Condition Current Condition Evaluation Date 12/21/24 Treatment Diagnosis Stroke symptoms M3 PT-IP Subjective Start: 12/21/24 08:01 Freq: NEEDED Status: Active Protocol: Document 12/21/24 08:54 MB (Rec: 12/21/24 09:42 MB [id number]) Subjective Physical Therapy Visit Type Type Initial Evaluation Visit Start Time 08:54 Visit Stop Time 09:[address] SUPERVISOR Visits 0 Physical Therapy Visit Comments Patient Comments Pt is agreeable to PT. When asked how he is feeling, he states, dizzy, and when asked what he thinks happened, he thinks he has had a basilar stroke. Pt had 5/10 occipital pain last night and no pain currently. Therapy Pain Assessment Pain When Pain Assessed At Rest Pain Present Pain Present Denied Pain M4 PT-IP Mobility and Gait Start: 12/21/24 08:01 Freq: NEEDED Status: Active Protocol: Document 12/21/24 08:54 MB (Rec: 12/21/24 09:42 MB [id number]) PT-Bed Mobility Assessment Rolling Type of Rolling Roll to Right Level of Assist Standby Assistance Supine to Sit Supine to Sit Standby Assistance Sit to Supine Sit to Supine Standby Assistance Scooting Scooting to Edge of Bed Standby Assistance Scooting Up and Down in Bed Standby Assistance PT-Transfer Assessment Sit to and From Stand Sit to and from Stand Contact Guard Assistance,1 Person Assistance,Use of Upper Extremities Equipment Transfer Assistive Device Gait Belt Transfers Transfer Destination Bed Transfer Technique Ambulation Transfer Ability Level of Assist Contact Guard Assistance,1 Person Assistance,Use of Upper Extremities Comments Mobility Comments Orthostatic assessment with BP and HR in LUE: supine 150/86, 82; standing 147/88, 86; standing 1' 152/101, 91. Gait Assessment Gait Gait Assistance Required: Minimum Assistance Distance (Feet) 40 Assistive Devices Assistive Device Gait Belt Orthotic/Prosthetic Devices or Brace: No Gait Deviations General Gait Pattern Decreased Stride Length,Narrow Based Gait Factors Limiting Gait Function Factors Limiting Gait Function Incoordination,Poor Balance, Poor Safety Awareness Comments Gait Comments No AD and started right R STATISTICAL METHODS TEACHER and then PT wishes to assess for ataxia and so held onto gait belt only, no clear ataxia though pt is imbalanced and reaches for bottom of the bed, 20'x2, LOB with right side stepping EOB PT-Balance Assessment Sitting Balance and Reactions Static Sitting Balance Ability Good Dynamic Sitting Balance Ability Good Standing Balance and Reactions Static Standing Balance Ability Fair Dynamic Standing Balance Ability Poor Device Used Gait belt Balance Tests Romberg See below Comments Other Balance Tests/Deviations/Treatment Romberg with STATISTICAL METHODS TEACHER to get into : position and step reaction to the right with attempted Romberg with EC M5 PT-IP Objective Assessments Start: 12/21/24 08:01 Freq: NEEDED Status: Active Protocol: Document 12/21/24 08:54 MB (Rec: 12/21/24 10:42 MB [id number]) Orientation Orientation/Cognition Level of Alertness Alert Orientation Name,Age,Birthday,Month,Date, Year,Day of Week,Place, Situation Language Function Ability No Deficits Noted Safety Awareness Decreased Safety Awareness Memory Description No Deficits Noted Gross Range of Motion Upper Extremity ROM Impairments Defer to OT Lower Extremity ROM Assessment Left Impaired Impairments Decreased left toe great extension compared to the right Strength Lower Extremity Strength Assessment Left Impaired Hip Left hip flexion 4/5 Knee Left knee 4/5 Ankle Left great toe extension 2/5 Coordination Assessment Gross Coordination Gross Coordination Impaired Assessment Finger to Nose Test Left greater than right tremor and dysmetria Foot Tapping Test Minimal Impairment Heel on Garza Test Slower testing on left Sensation Assessment Sensation Light Touch Intact Comments Sensation Comments Pt reports B diabetic peripheral neuropathy in feet and B light touch testing is normal Muscle Tone Muscle Tone WNL Yes Other Assessments Other Other Assessments Oculomotor screen: some changes in left eye noted and more ptosis, decreased convergence. With peripheral vision screens right eye and then left eye, notes PT's finger in grossly same visual duarte, more clarity with vision with right eye open than left, no spontaneous nystagmus, normal saccadic eye motion. Of note, with test of skew, both eyes and greater with left eye must move to find target when uncovered. Cervical ROM is limited all directions and head rests in mild left SB and right rotation. PMH includes possible torticolis as kid per pt and also Padilla's Palsy affecting left side M6 PT-IP Treatment Start: 12/21/24 08:01 Freq: NEEDED Status: Active Protocol: Document 12/21/24 08:54 MB (Rec: 12/21/24 10:42 MB [id number]) Physical Therapy Treatment Education Education Provided Safety Other Treatments Other Treatment Performed Education about plan: await MRI results and likely therapy goal of acute rehab if stroke and OPPT and home with assistance if no stroke to improve balance, proprioception, cervical ROM and tracking to reduce fall risk M7 PT-IP Assessment and Plan Start: 12/21/24 08:01 Freq: NEEDED Status: Active Protocol: Document 12/21/24 08:54 MB (Rec: 12/21/24 10:42 MB [id number]) PT Summary Assessment and Plan Potential Rehabilitation Potential Excellent Status of Condition at Evaluation Evolving Summary Impairments ROM,Strength,Balance, Coordination,Transfers,Gait, Activity Tolerance Progress Towards Goals Progressing Toward Goals Assessment Summary 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 He uses a cane in right hand at baseline. He denies history of PARKS and reports occipital pain last date. He feels new onset of dizziness that appears to be vision changes, different from baseline. Pt is usally mod I with cane. PT functional testing reveals: HTN and negative orthostatis this date , cervical spine changes, left eye changes, imbalance with standing, tremor left greater than right hand and more dysmetria left UE and LE with coordination testing as well as some LLE weakness. Pt's gait is also imbalanced and he require min A for safe mobility today. Await brain MRI results and recommend acute rehab if stroke and home with assistance and OPPT if clear. Pt receptive and engaged in all testing and recommendations with PT. Await OP and MEDICAL LAB TECHNOLOGIST clinical opinions as well. Goals Bed Mobility Goal Independent Transfer Goal Independent,Cane Gait Goal Independent,Cane Gait Distance 100 Other Goals Pt will ascend and descend flight of steps with left rail to allow safe in home mobility. Pt will perform WNLs on a standardized balance test to decrease fall risk. Days to Meet Goals 4 Frequency of Treatment Frequency Of Treatment Once a Day Other frequency x1 Treatment Plan Physical Therapy Treatment Plan Bed Mobility Training,Transfer Training,Gait Training, Therapeutic Exercise,Balance Retraining,Discharge Planning, Hot or Cold Pack,Neuromuscular Re-ed,Coordination Retraining ,Manual Therapy Recommendations To Nursing Amount of Assist Needed 1 Person Assist Discharge Recommendations Other Discharge Recommendations Acute rehab vs OPPT Transportation Needs at Discharge Private Vehicle
[2024-12-21 12:00] VITALS: BP 126/69; PULSE 68; RESP 16; TEMP 36.9; O2SAT 92
--- NOTE | 2024-12-21 14:00 | OT.IP.EVAL ---
Past Medical History (Last Updated 05/03/23 @ 12:10 by Edmond Barone MD) Acne conglobata (1955) Allergy (Unknown) Anxiety (2010) Arthritis (2005) Asthma (Unknown) Padilla's palsy (2010) Bilateral knee pain Bronchiectasis Bronchitis (Unknown) Chronic back pain (2010) Diabetes (~2003) Diverticulitis (2003) Fatigue Glaucoma (2003) Hepatitis A (~1966) Hypertension (Unknown) Hyponatremia (Unknown) Injury of left ulnar nerve Insomnia (Unknown) Pulsatile tinnitus of both ears (2009) Sciatic leg pain Skin cancer (1981) Tendonitis (Unknown) Surgical History (Last Reviewed 03/29/18 @ 17:35 by Devendra Lees MD) History of cataract removal with insertion of prosthetic lens Occupational Therapy Inpatient Evaluation/Re-Eval M1 PT/OT-IP Prior Functional Status Start: 12/21/24 08:01 Freq: NEEDED Status: Active Protocol: Document 12/21/24 14:07 [facility] (Rec: 12/21/24 14:28 [facility] [id number]) Medical Review Prior Functional Status Medical History Reviewed Yes Diet/Fluid Consistency Regular Communication WNLs Mobility and Gait Mod I with hurrycane in right hand, history of B knee trouble and left SI issues Activities of Daily Living and IADL's Mod I Social History Household Members spouse Living Arrangements House Number of Floors (Floors) Two Floors Number of Stairs To Enter/Railing? 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, left eye changes M2 OT-IP Current Condition Start: 12/21/24 14:07 Freq: Status: Active Protocol: Document 12/21/24 14:07 [facility] (Rec: 12/21/24 14:28 [facility] [id number]) Occupational Therapy Current Condition Current Condition Evaluation Date 12/21/24 Treatment Diagnosis CVA symptoms Diagnosis Onset Date 12/20/24 M3 OT- IP Subjective and Pain Start: 12/21/24 14:07 Freq: Status: Active Protocol: Document 12/21/24 14:07 [facility] (Rec: 12/21/24 14:28 [facility] [id number]) OT- Subjective Occupational Therapy Visit Type Type Initial Evaluation Visit Start Time 13:15 Visit Stop Time 14:00 Occupational Therapy Visit Comments Patient Comments Pt agreed to get up for OT eval. Patient/Caregiver Goals TO go home. OT Pain Assessment Pain When Pain Assessed At Rest Pain Present Pain Present Denied Pain M4 OT- IP ADL's Start: 12/21/24 14:07 Freq: Status: Active Protocol: Document 12/21/24 14:07 [facility] (Rec: 12/21/24 14:28 [facility] [id number]) OT ICA-Zplp-Qercyad Comments OT Self-Feeding Comments Pt states able to do on his own. OT ADL-Grooming Comments OT Grooming Comments Not performed. OT ADL-Oral Care Comments Oral Care Comments Not performed. OT ADL-Dressing General Eval Lower Body Dressing Ability Independent Comments OT Dressing Comments Pt able to independently do his socks while seated. OT ADL-Toileting Comments OT Toileting Comments Pt states has been using the toilet on his own and present to assist as pt having to have a bowel movement as OT completed OT eval. OT ADL-Bathing Comments OT Bathing Comments Pt would benefit from a shower chair. M5 OT- IP IADL's Start: 12/21/24 14:07 Freq: Status: Active Protocol: Document 12/21/24 14:07 [facility] (Rec: 12/21/24 14:28 [facility] [id number]) OT-Instrumental Activities of Daily Living Home Safety Awareness Awareness of Need for Assistance at Home Good Awareness Ability to Problem Solve Emergency Able to Problem Solve Situations Medication Management Medication Management Comments Suggested to have pt's supervise initially. Money Management Money Management Comments Suggested to have pt's supervise initially. Meal Preparation Meal Preparation Comments Pt's to assist. Dishroom Attendant Dishroom Attendant Comments Pt's to assist. Driving Driving Concerns Identified Regarding Safety Driving Comments Pt aware not to drive at this time. M6 OT- IP Functional Cognition Start: 12/21/24 14:07 Freq: Status: Active Protocol: Document 12/21/24 14:07 [facility] (Rec: 12/21/24 14:28 [facility] [id number]) Cognitive Factors Limiting Selfcare Function Cognitive Ability Level of Alertness Alert,Drowsy Patient Orientation Name,Age,Birthday,Month,Date, Year,Day of Week,Place, Situation Attention Span Ability Capable of Focused Attention, Capable of Sustained Attention Ability to Follow Commands Able to Follow Multi-Step Commands Memory Description No Deficits Noted Safety Awareness Underestimates Need for Assistance Problem Solving Ability No deficits Noted Cognitive Tests SLUMS Pt scored 28/30 which implies normal for cognition. Cognitive Comments Cognitive Assessment Comments Pt states he is very tired and feels like he is thinking and moving in slow motion. Pt scored 157 second on [place] Making Part B which implies severe impairments for speed of processing, visual attention, mental flexibility. executive functioning,and task switching. Pt's score is 30% for his age group. Pt and well aware that he will not be driving at this time. Pt states did not sleep well and had Ativan earlier prior to having MRI, which may be affecting his overall score. OT- Vision and Hearing OT- Hearing Assessment OT- Hearing Assessment WFL OT- Vision Assessment Visual Acuity Glasses For Reading Visual Attentiveness WFL Visual Convergence WFL Visual Mendes WFL Diplopia Present Vision Assessment Comments Pt complaining of blurred vision at time and states his right eye appears to see the clock larger than left eye. Pt noted one instance of circular nystagmus. M7 OT- IP Mobility and Balance Start: 12/21/24 14:07 Freq: Status: Active Protocol: Document 12/21/24 14:07 [facility] (Rec: 12/21/24 14:28 [facility] [id number]) OT-Transfer Assessment Sit to and From Stand Sit to and from Stand Independent Transfers Transfer Ability Standby Assistance Technique Transfer Destination Bed,Toilet Transfer Technique Stand Step Pivot Devices Transfer Assistive Devices Front Wheeled Walker Comments Mobility Comments DIstant SBA with FWW. OT- Balance Assessment Sitting Balance and Reactions Static Sitting Balance Ability Normal Dynamic Sitting Balance Ability Normal Standing Balance and Reactions Static Standing Balance Ability Good Dynamic Standing Balance Ability Fair M8 OT- IP Objective Assessments Start: 12/21/24 14:07 Freq: Status: Active Protocol: Document 12/21/24 14:07 [facility] (Rec: 12/21/24 14:28 [facility] [id number]) OT Gross Range of Motion Upper Extremity Range of Motion Assessment Bilaterally Impaired ROM Impairments BUE decreased 0-85 degrees shoulder flexion, pt has rounded shoulders. OT Strength Upper Extremity Strength Assessment Bilaterally Impaired Comments Strength Comments For available ROM 4-/5 and distally 4/5. OT- Coordination Assessment Upper Extremity Finger to Nose Test Within Functional Limits Finger Tapping Test Within Functional Limits Comments Coordination Comments 9 hole peg right hand 27 sec and left hand 57sec. Pt index finger had a bandage on and pt state prior left hand does not function as well. . Encouraged pt to work on FMS at home. OT Sensation Assessment Comments Summary Comments Light touch intact. Decreased for kinesthesia both hands. M9 OT- IP Assessment and Plan Start: 12/21/24 14:07 Freq: Status: Active Protocol: Document 12/21/24 14:07 [facility] (Rec: 12/21/24 14:28 [facility] [id number]) OT Summary Assessment and Plan Potential Rehabilitation Potential Good Analytic Complexity at Evaluation Low Summary OT Impairments Range of Motion,Strength, Balance,Functional Cognition, Functional Mobility,Dressing, Toileting,Bathing,Toilet Transfers,Shower Transfers Progress Towards Goals Progressing Toward Goals Assessment Summary Pt low complexity and here due to CVA symptoms. Pt main barriers are a bit sluggish due for problem solving and thinking-which is probably attributed to the Ativan taken earlier . Otherwise pt is SBA with FWW and has a very supportive to assist him. Pt will benefit from outpt PT for dynamic balance and core strengthening needs. Goals Toileting Goal Independent Bathing Goal Independent Toilet Transfer Goal Independent Shower Transfer Goal Independent OT-Other Goals Pt independent to do FMS. Days to Meet Goals 2 Frequency of Treatment Frequency Of Treatment Once a Day Treatment Plan OT Treatment Plan ADL Training,Functional Mobility,Therapeutic Exercises ,Patient/Family Education, Discharge Planning Other Treatment Recommendations and Next TO continue to assess pt's Treatment Focus vision. Discharge Recommendations OT Discharge Recommendations Home with Assistance, Outpatient PT Home Equipment Needs shower chair? Transportation Needs at Discharge Private Vehicle
--- NOTE | 2024-12-21 14:32 | PM.DS.1 ---
History of Present Illness History of Present Illness Date Patient Seen: 12/21/24 Chief complaint: Stroke Narrative: Per admitting provider, 79-year-old male with past medical history of hypertension, hyperlipidemia, and pap-xllngjh-ljagedrge diabetes presents with double vision and concern for strokelike symptoms. 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 This evening around 8 PM, the patient was watching TV when suddenly he noticed double vision and inability to focus while watching TV. The patient also had some unsteady gait but denies vertigo. The patient states that he could not get his words out easily but the patient's states that the patient was speaking normally. Otherwise the patient denies any focal weakness or changes in sensation. The patient also denies any nausea, vomiting, fever, chills, headache, chest pain or shortness of breath. In the emergency room, the patient was hemodynamically stable. Patient's symptoms did continue to persist but improved when he was in the CT scanner. The patient was noted to be nonfocal on exam per our ER physician. CT scan of the head and and neck with contrast shows no signs of acute occlusion or signs of acute stroke on CT without contrast. Due to concern for stroke our ER physician recommended to admit the patient to monitor overnight for any underlying atrial fibrillation or flutter as well as getting an MRI of the brain in the morning. 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 Hypertension. Hyperlipidemia. Hospital Course: 79 year old male with PMH of DM, HTN, HLD who presented with double vision and mild ataxia. Initial CT and CTA were unremarkable. MR ultimately showed no acute infarcts. He continued to be slightly declined compared to baseline on the R side, but was improving and after discussion of continued observation for TTE and longer monitoring or discharge home, the patient wished to discharge home. TTE was unable to be performed prior to discharge but was ordered for an outpatient study as no prior TTE was available for review. He had no evidence of afib on telemetry. He was discharged on DAPT for 21 days and high intensity statin therapy. No other changes to his home medications were recommended on discharge. Other diffentials for him include peripheral vertigo and orthostasis, though these were not noted during admission. Time Spent with Patient Time spent: Greater than 30 minutes Exam Vital Signs (past 8 hours): - 12/21/24 08:00 12/21/24 09:57 12/21/24 12:00 Temperature 97.7 F 98.4 F Pulse Rate 92 H 92 H 68 Respiratory Rate 18 16 Blood Pressure 171/101 H 171/101 H 126/69 Pulse Oximetry 92 92 Oxygen Flow Rate 0 0 Oxygen Delivery Method Room Air Oxygen Flow Rate 0 Narrative Exam Narrative: Physical Exam: GENERAL: The patient is not in any acute distressed. Awake and alert. HEENT: Nonicteric sclerae, PERRLA, EOMI. Oropharynx clear. Moist mucous membranes. Conjunctivae appear well perfused. HEART: Regular rate and rhythm without murmurs. No lower extremities edema. LUNGS: Clear to auscultation bilaterally. No wheezing, crackles or rhonchi ABDOMEN: Soft, positive bowel sounds, nontender. SKIN: No rash, no excessive bruising, petechiae, or purpura. NEUROLOGIC: AxO x 3. Cranial nerves II-XII intact without motor/sensory deficit. Objective Labs 12/21/24 05:30 12/21/24 05:30 Labs: Laboratory Results - last 24 hr 12/20/24 12/20/24 12/21/24 21:05 21:45 05:30 WBC 8.0 6.9 RBC 5.03 4.43 L Hgb 15.7 13.9 Hct 46.8 41.2 MCV 93.2 93.0 MCH 31.2 31.4 MCHC 33.5 33.7 RDW 14.2 14.0 Plt Count 208 177 Neut % (Auto) 60.8 64.9 Lymph % (Auto) 26.0 23.5 L [place] % (Auto) 8.2 7.9 Eos % (Auto) 3.5 2.7 Baso % (Auto) 1.5 1.0 Neut # (Auto) 4900 4500 Lymph # (Auto) 2100 1600 [place] # (Auto) 700 500 Eos # (Auto) 300 200 Baso # (Auto) 100 100 PT 11.6 INR 1.0 APTT 35 Sodium 137 135 L Potassium 4.2 4.4 Chloride 100 102 Carbon Dioxide 26 26 BUN 25 H 26 H Creatinine 1.40 H 1.17 Estimated GFR 51 L > 60 BUN/Creatinine Ratio 17.9 22.2 H Glucose 202 H 163 H Hemoglobin A1c 7.0 H Calcium 9.4 8.8 Magnesium 1.6 Total Bilirubin 0.3 AST 37 ALT 37 Alkaline Phosphatase 70 Total Creatine Kinase 81 Troponin I < 0.012 Total Protein 7.1 Albumin 4.6 Globulin 2.5 Albumin/Globulin Ratio 1.8 Triglycerides 182 H Cholesterol 123 L LDL Cholesterol, Calc 44 HDL Cholesterol 43 U Opiates 300ng/mL cut Negative Ur Oxycodone Screen Negative Urine Methadone Screen Negative Ur Barbiturates Screen Negative U Tricyclic Antidepress Negative Ur Phencyclidine Scrn Negative Ur Amphetamines Screen Negative U Methamphetamines Scrn Negative Ur MDMA Scrn (Ecstasy) Negative U Benzodiazepines Scrn Positive H Urine Cocaine Screen Negative U Marijuana (THC) Screen Negative Urine pH Normal Urine Specific [place] Normal Ur Creatinine Normal [facility] Medical History (Updated 12/20/24 @ 23:23 by Lul Vega MD) Fatigue Bilateral knee pain Injury of left ulnar nerve Sciatic leg pain Bronchiectasis Skin cancer (1981) Hyponatremia (Unknown) Pulsatile tinnitus of both ears (2009) Glaucoma (2003) Diverticulitis (2003) Diabetes (~2004) Hypertension (Unknown) Bronchitis (Unknown) Insomnia (Unknown) Tendonitis (Unknown) Acne conglobata (1954) Asthma (Unknown) Allergy (Unknown) Anxiety (2010) Padilla's palsy (2011) Arthritis (2004) Chronic back pain (2009) Hepatitis A (~1967) Surgical History History of cataract removal with insertion of prosthetic lens Family History Father Hypertension Hyperlipidemia Mother Stroke Grandfather Hypertension Hyperlipidemia Social History household members: spouse Smoking Status: Never smoker alcohol intake: current substance use type: does not use Discharge Plan Discharge Plan Patient Disposition: Home Provider Discharge Comment: You were admitted to the hospital with possible TIA. MRI was negative for a stroke. Recommend aspirin and plavix for a total of 21 days after discharge, then lifelong aspirin and statin therapy. Echocardiogram ordered for outpatient. Discharge orders & Medications Prescriptions: Continued metoprolol tartrate 25 mg tablet 12.5 mg PO BID Qty: 90 1RF metformin 1,000 mg tablet 1,000 mg PO BIDWMEAL Qty: 180 3RF Hold Instructions: Needs labs glipizide 5 mg tablet 5 mg PO BID Qty: 180 1RF Hold Instructions: alternate med (DME) Disabled Parking Permit See Rx Instructions .ROUTE .MEDSUPPLY Qty: 1 0RF Rx Instructions: Valid for 5 years (DME) Onetouch Testing strips Qty: 200 4RF Dose Instruction: As directed Rx Instructions: As directed (once daily) lorazepam 1 mg tablet 1 mg PO DAILY PRN (Reason: anxiety) Qty: 30 0RF Patient Comments: usually takes at bedtime but can ativan as needed for anxiety latanoprost 0.005 % Drops 1 drp EYE-BOTH BEDTIME No Action celecoxib 200 mg capsule 200 mg PO BID Qty: 180 3RF atorvastatin 40 mg tablet 40 mg PO QPM Qty: 90 3RF aspirin 81 mg capsule 81 mg PO QAM 30 Days Qty: 30 0RF clopidogrel 75 mg tablet 75 mg PO DAILY 21 Days Qty: 21 0RF dorzolamide-timolol (PF) 2-0.5 % dropperette EYE-BOTH BID Arnuity Ellipta 100 mcg/actuation blister with device 1 inh inhalation QAM Qty: 90 3RF lisinopril 20 mg tablet 20 mg PO QAM Qty: 90 3RF brimonidine 0.1 % drops EYE-BOTH BID cholecalciferol (vitamin D3) 25 mcg (1,000 unit) capsule 25 mcg PO DAILY Tumeric 300 mg capsule 1 cap PO QAM Qty: 90 0RF vitamin B complex Tablet 1 tab PO QAM Follow up/Referrals: Barb Baldwin DO [Primary Care Provider] - 1 Week Other Ambulatory Orders: EC echo doppler complete (Routine) Timeframe: 2 Days Facility: [facility] - Location: Radiology Ordered By: Dk Beltran Discharge Health Status Multidrug resistant organism: No MDRO Diet/Activity/Treatments Diet: Diet as Tolerated and Carb-consistent/Diabetic Activity: As tolerated, no restrictions Visit Report/Discharge Packet Stand Alone Forms: Congestive Heart Failure, Patient Portal/API, Stroke Signs & Symptoms Discharge Data Primary Care Provider: Barb Baldwin Attending Provider: Kevyn Bautista Admit Date/Time: 12/20/24 23:54 Quality VTE Deep Vein Thrombosis/Pulmonary Embolism Present on Admission: Yes
--- NOTE | 2024-12-21 15:33 | CM.DANOTE ---
Initial DCP Assessment Note Pt is a 79 yo male, resident of [place], presents with stroke like sx, admitted OBS for stroke r/o. MRI neg for stroke, therapies have cleared patient for return home. PCP: Barb Baldwin Payer: [employer] Reviewed chart, pt discussed in multidisciplinary rounds this morning. Therapies recommending inpatient rehab if MRI confirms stroke. Patient lives independently w/sp, no barriers identified to patient's safe discharge home w/family to assist as needed; close outpatient f/u recommended. MRI neg for stroke, patient discharged this afternoon. PCP office alerted. Plan: Discharge home w/sp, via spouse to transport. Close outpatient follow up recommended. EMILIANA Urban Discharge Planning/Care Management CM Discharge Assessment Start: 12/21/24 15:32 Freq: Status: Active Protocol: Document 12/21/24 15:32 MARIUM (Rec: 12/21/24 15:33 [id number]) Discharge Planning Assessment Assigned Manager Family EMILIANA Callahan DPOA/Assigned Designee Name Rose Rabago, spouse Contact Information [phone] Advance Directives? No History Provided By Patient,Medical Record Prior Living Arrangements House Household Members spouse Type of transporation used prior to Drives own vehicle admit Independent with ADL's Yes Is patient alert and oriented? Yes Barriers to Discharge No Discharge Plan Home Transportation Arrangement Spouse Referrals Initiated None needed
--- NOTE | 2024-12-21 15:42 | PC.NURSE ---
RN gave discharge education with pt and significant other, pt will follow up with PCP and supervisor picking crew rx at pharmacy, IV removed by doctor of nursing practice, All belongings with pt and student walked down the pt in wheel chair, pt will ride home with spouse, all questions answered
== END 2024-12-21 11:40 | disposition home or self-care (01) ==
LOC: ED 21:40 → AC 23:44
PROVIDERS: Admitting Provider Internal Medicine; Emergency Provider Emergency Medicine; Family Provider Orthopaedic Surgery; PCP Family Medicine; Referring Provider Emergency Medicine; Visit Provider Internal Medicine
DX: H53.2 Diplopia (principal); E11.9 Type 2 diabetes mellitus without complications; I10 Essential (primary) hypertension; E78.5 Hyperlipidemia, unspecified; Z79.84 Long term (current) use of oral hypoglycemic drugs
CPT/HCPCS: 36415; 70450; 70496; 70498; 70551; 71045; 80048; 80053; 80061; 80305; 81003; 82550; 82962; 83036; 83735; 84484; 85025; 85610; 85730; 93005; 96372; 96374; 96375; 97129; 97162; 97165; 97535; 99285; 99291; G0378; J1644; J1815; J2060; J2405; Q9967

== ENCOUNTER → 2025-01-15 08:01 | Outpatient (CLI) | payer MEDICARE, OTHER, SELFPAY ==
[2024-12-20 23:55] VITALS: BMI 29.7
--- NOTE | 2025-01-15 08:02 | DI.ECHO.S_ITS ---
[facility]---------+ [facility] : : [address] : : [place] : : [id number] : : Phone: [phone] Echocardiogram Report + + :Name: LUIS ALFREDO LIPSCOMB Study Date: 01/15/2025 Height: 72 in : :[facility] ReadingLocation: Weight: 215 lb : : Gender: Male BSA: 2.2 m2 : :: 1945 Age: 79 yrs BP: 124/80 mmHg: :Reason For Study: TIA : :Ordering Physician: UVALDO, : :BEAU LEVY Performed By: Leesa Garcia : :Referring: BEAU BAILON : + + Interpretation Summary Borderline concentric left ventricular hypertrophy with ejection fraction 60- 65%. No significant valvular abnormality. The ascending aorta is mildly enlarged. Procedure: A two-dimensional transthoracic echocardiogram with color flow and Doppler was performed. The study quality was technically adequate. There is no prior echocardiogram noted for this patient. The patient was in sinus rhythm with heart rates between 72-84 bpm during the exam. Left Ventricle: The left ventricle is normal in size. There is borderline concentric left ventricular hypertrophy. The ejection fraction is estimated to be 60-65%. There are no focal wall motion abnormalities. Right Ventricle: The right ventricle is normal in size and function. Atria: The left atrial size is normal. Right atrial size is normal. There is no Doppler evidence for an interatrial shunt. Mitral Valve: The mitral valve is normal in structure and function. There is trace mitral regurgitation. Aortic Valve: The aortic valve is trileaflet. The aortic valve opens well. There is no aortic valve stenosis. There is trace aortic regurgitation. Tricuspid Valve: The tricuspid valve leaflets are thin and pliable. There is a trace or physiologic amount of tricuspid regurgitation. Pulmonary artery pressures cannot be estimated because of the lack of a measurable TR jet velocity. Pulmonic Valve: The pulmonic valve leaflets are thin and pliable; valve motion is normal. There is mild pulmonic regurgitation. Great Vessels: The aortic root is normal size. The ascending aorta is mildly enlarged. The IVC is of normal diameter and collapses greater than 50% with a sniff. This suggests a low right atrial pressure of 3 mm Hg. Pericardium/ Pleura There is no pericardial effusion. There is no pleural effusion. MMode/2D Measurements & Calculations LVIDd: 4.2 cm LVOT diam: 2.0 cm LVIDs: 2.8 cm Ao root diam: 3.9 cm FS: 34.4 % asc Aorta Diam: 3.9 cm EPSS: 1.1 cm Ao Arch Diam (Prox Trans): 2.8 cm IVSd: 1.1 cm LVPWd: 1.00 cm LV vallejo. diameter/BSA (cm/m^2): 1.9 LV sys. diameter/BSA (cm/m^2): 1.3 LA A2 area: 17.8 cm2 RA long axis: 5.7 cm LA A4 area: 15.0 cm2 RA area: 14.4 cm2 LA length (vol): 5.4 cm RA vol: 31.2 ml LA vol: 41.7 ml RA : 14.2 ml/m2 LA vol index: 19.0 ml/m2 IVC diam: 0.92 cm RVD1 (basal): 3.6 cm RVD2 (mid): 3.2 cm TAPSE: 2.0 cm Doppler Measurements & Calculations Ao V2 max: 138.9 cm/sec LVOT Max Antoni: 117.0 cm/sec Ao V2 mean: 104.7 cm/sec LV V1 max P.5 mmHg Ao max P.7 mmHg LV V1 VTI: 19.6 cm Ao mean P.8 mmHg ELYSSA(I,D): 2.4 cm2 Ao V2 VTI: 25.9 cm ELYSSA(V,D): 2.6 cm2 sev ratio: 0.76 ELYSSA indexed to BSA (cm^2/m^2): 1.1 MV E max antoni: 45.0 cm/sec PA V2 max: 87.9 cm/sec MV A max antoni: 81.5 cm/sec PA V2 mean: 60.8 cm/sec MV E/A: 0.55 PA mean P.7 mmHg Med Peak E' Antoni: 6.1 cm/sec PA pr(Accel): 39.2 mmHg E/E' med: 7.4 Lat Peak E' Antoni: 9.9 cm/sec E/E' lat: 4.6 E/e' average: 6.0 MV dec time: 0.28 sec SV(LVOT): 61.1 ml Electronically signed by: Allyson Brock on Reading Physician:01/15/2025 10:10 AM
== END ==
PROVIDERS: PCP Family Medicine; Referring Provider Internal Medicine; Visit Provider Internal Medicine
DX: I37.1 Nonrheumatic pulmonary valve insufficiency (principal); G45.9 Transient cerebral ischemic attack, unspecified; I77.810 Thoracic aortic ectasia
CPT/HCPCS: 93306

== ENCOUNTER → 2025-05-21 06:55 | Outpatient (CLI) | payer MEDICARE, OTHER, SELFPAY ==
[2024-12-20 23:55] VITALS: BMI 29.7
[2025-05-21 07:33] LABS: Add Manual Diff / Slide Review NO; Hematocrit 44.8 % (41-53); Hemoglobin 15.0 g/dL (13.5-17.5); Lymphocytes Absolute Auto 2000 /uL (1100-4500); Mean Corpuscular HGB Conc 33.6 % (30-36); Mean Corpuscular Hemoglobin 30.1 PG (26-34); Mean Corpuscular Volume 89.6 fL (80-100); Platelet Count 214 X10^3/uL (150-400)
[2025-05-21 07:40] LABS: Hemoglobin A1C% w Est Avg Glu 7.9 % (4.0-6.0)
[2025-05-21 07:56] LABS: Alanine Aminotransferase 18 IU/L (<50); Albumin 4.1 g/dL (3.5-5.0); Albumin Globulin Ratio 1.9 (1.0-2.8); Alkaline Phosphatase 72 U/L (38-126); Blood Urea Nitrogen 18 mg/dL (9-20); Calcium 9.1 mg/dL (8.4-10.2); Carbon Dioxide 25 mmol/L (22-32); Chloride 102 mmol/L (98-107); Cholesterol 117 mg/dL (140-199); Estimated Glomerular Filt Rate > 60 mL/min (>60); Globulin 2.2 g/dL (1.7-4.1); Glucose 227 mg/dL (70-99); HDL Cholesterol 56 mg/dL (40-60); HEMOLYSIS < 15 (0-50); Potassium 4.4 mmol/L (3.4-5.1); Sodium 135 mmol/L (137-145); Total Protein 6.3 g/dL (6.3-8.2); Triglycerides 89 mg/dL (35-150)
[2025-05-21 08:10] LABS: Microalbumi Creatinin Ratio Ur 13.0 ug/mg CR (<30)
== END ==
PROVIDERS: PCP Family Medicine; Referring Provider Family Medicine; Visit Provider Family Medicine
DX: I10 Essential (primary) hypertension (principal); E11.9 Type 2 diabetes mellitus without complications; Z12.5 Encounter for screening for malignant neoplasm of prostate; E78.2 Mixed hyperlipidemia; R53.83 Other fatigue; Z79.890 Hormone replacement therapy; E66.3 Overweight
CPT/HCPCS: 36415; 80053; 80061; 82043; 82570; 83036; 84402; 84403; 85025; G0103